=== PATIENT | female | born 1960 | race Caucasian/White ===

== ENCOUNTER 2024-09-08 04:05 | Inpatient (IN) | payer OTHER, SELFPAY ==
[2024-09-08] VITALS (13 sets, daily range): BP systolic 112–187; BP diastolic 71–130; PULSE 84–122; RESP 16–23; TEMP 36.4–37.6; O2SAT 86–97; BMI 39.0; BMI 39.7
--- NOTE | 2024-09-08 04:21 | CT_ITS ---
PROCEDURE: CTA CHEST W/WO CONTRAST REASON FOR EXAM: Chest pain. TECHNIQUE: CTA imaging of the chest with intravenous contrast. 3D reconstructions. CONTRAST: COMPARISON: None. FINDINGS: The thyroid is enlarged and heterogeneous and contains multiple nodules. The right lobe of the thyroid measures up to 6.1 AP by 3.3 TV cm. Further evaluation with ultrasound is recommended. The trachea and central bronchial tree is are patent. There is no pleural or pericardial effusion. The heart is normal in size. The pulmonary arteries appear normal in size and caliber. There is no filling defect to suggest pulmonary artery embolism. The thoracic aorta is without evidence of aneurysmal dilatation. Small hiatal hernia is present. There are gallstones present within the gallbladder. Evaluation of the lung parenchyma demonstrates diffuse patchy ground-glass infiltrates particularly within the right lung. There are some patchy ground-glass infiltrates on the left side. The streaky changes at the lung bases. There is thickening involving the major fissures bilaterally. Pulmonary interstitium is thickened. No acute osseous abnormalities. CT/CTA Chest W/WO Contrast IMPRESSION: Diffuse patchy ground-glass infiltrates within the right lung. Some patchy inf iltrates are noted on the left. There is pulmonary interstitial thickening bilaterally. These findings are most compati ble with infectious versus inflammatory process within the lungs. Follow-up onto complete resolution is recommended. There is no evidence to suggest pulmonary embolism Hiatal hernia. 6.1 cm right thyroid mass. Further evaluation is warranted. Cholelithiasis. Other findings as above. One or more dose reduction techniques were used (e.g., Automated exposure contr ol, adjustment of the mA and/or kV according to patient size, use of iterative reconstruction technique). Reading Location: [id number]
--- NOTE | 2024-09-08 04:21 | EKG12_ITS ---
Test Reason : BACK PAIN Blood Pressure : */* mmHG Vent. Rate : 112 BPM Atrial Rate : 112 BPM P-R Int : 144 ms QRS Dur : 100 ms QT Int : 332 ms P-R-T Axes : 53 -2 116 degrees QTcB Int : 453 ms Sinus tachycardia with Fusion complexes Left ventricular hypertrophy with repolarization abnormality ( R in aVL , Avtar product ) Inferior infarct , age undetermined Abnormal ECG Confirmed by Michel Leonard ([id number]), copy editor YOUSUF GOODWIN ([id number]) on 09/09/2024 6:57:50 AM Referred By: Confirmed By: Michel Leonard
[2024-09-08] MEDS: 0.9% Normal Saline (1000mL) 1,000 ML 999 ML IV (04:38)
[2024-09-08] MEDS: Morphine 4 MG/ML Syringe IV (04:39)
[2024-09-08] MEDS: Ondansetron 4 MG/2 ML Vial IV (04:39)
--- NOTE | 2024-09-08 04:47 | EX.ED.DYSGE1 ---
HPI History of Present Illness Chief Complaint: Back Informant: patient and spouse/S.O. Narrative Narrative: Patient is a 63-year-old female who reports no significant past medical history. She states that starting roughly 2 weeks ago she noticed pain in her left upper back. She states that there was no trauma or excessive activity. She denies any fevers or chills nausea vomiting or dysuria. She states she has not noticed any skin discoloration or rashes. She reports that the symptoms seem to be worse at night after eating. However tonight the pain was more intense and is lasting longer than she has had over the past 2 weeks and with that she presents for evaluation. [facility] Medical History (Updated 09/08/24 @ 06:[address] Eleni Rogers MD) Former tobacco use CKD (chronic kidney disease), stage II Morbid obesity Medical History no medical history no medical history Home Medications ?Medication ?Instructions ?Recorded ?Last Taken ?Type NK 09/08/24 Unknown History Allergy/AdvReac Type Severity Reaction Status Date / Time No Known Allergies Allergy Verified 09/08/24 04:09 Social History Smoking Status: Former smoker ROS ROS ED Constitutional Constitutional ED: Denies chills or fever(s) Eyes Eyes: Denies blurry vision or change in vision ENT ENT ED: Denies sore throat Cardiovascular Cardiovascular: Reports racing heartbeat; Denies chest pain or palpitations Respiratory/Chest Respiratory/Chest: Denies cough or dyspnea Gastrointestinal Gastrointestinal: Denies abdominal pain, diarrhea, nausea or vomiting Genitourinary Genitourinary ED: Denies dysuria or hematuria Musculoskeletal Musculoskeletal: Reports back pain; Denies neck pain Integumentary Denies Abrasions or rash Neurologic Neurologic: Denies headache(s) Hematologic/Lymphatic Hematologic/Lymphatic: Denies easy bleeding or easy bruising EXAM Physical Exam Const Vital Signs: 09/08/24 04:06 09/08/24 04:14 09/08/24 04:59 Temperature 97.5 F L Temperature Source Oral Pulse Rate 122 H 119 H Respiratory Rate 18 23 H Blood Pressure 187/130 H Blood Pressure Mean 149 Pulse Ox 93 95 86 Oxygen Delivery Method Room Air Room Air Room Air Oxygen Flow Rate (L/min) 09/08/24 05:04 Temperature Temperature Source Pulse Rate 104 H Respiratory Rate 18 Blood Pressure 156/110 H Blood Pressure Mean 125 Pulse Ox 93 Oxygen Delivery Method Nasal Cannula Oxygen Flow Rate (L/min) 2 Positive well nourished, well developed and obese General Appearance ED: well developed; Negative for pallor Nutritional Appearance: obese HEENT HEENT Narrative: Normocephalic atraumatic Eyes PERRL and EOMs intact bilaterally General Eye ED: Negative for scleral icterus Neck supple and no JVD Chest Wall palpation of chest normal Resp normal respiratory effort and clear to auscultation bilaterally Cardio regular rhythm Rate: tachycardic and other Other Details: Tachycardic rate with regular rhythm No murmurs rubs or gallops Radial and carotid pulses are equal and symmetric GI normal to inspection, nondistended, normoactive bowel sounds, non-tender, non-distended and no masses GI Narrative: No voluntary guarding or rigidity or pulsatile mass Auscultation: normoactive bowel sounds Palpation: soft Back/Spine no CVA tenderness Extremity normal to inspection Extremity Narrative: No asymmetric edema no pitting edema negative Homans' sign bilaterally Neuro oriented x3, CN's II-XII intact bilaterally and no sensory deficits noted Sensorium / Orientation: alert Motor Exam: strength 5/5 throughout Psych mental status grossly normal Skin no rashes or lesions noted and no wounds Skin Narrative: No overlying soft tissue changes to suggest trauma or infection General Skin Exam: Negative for jaundice or pallor MDM MDM MDM Narrative Medical decision making narrative: Patient arrived to the ER hypertensive and tachycardic. She reported that she follows with a family doctor but has no past medical history and takes no daily medication. With her left upper back pain that is not reproducible in nature and tachycardia there is concern that this could be pulmonary embolus versus dissection versus acute coronary syndrome. As she also reported symptoms were worse after eating there is concern for atypical pancreatitis versus biliary colic. Patient may also have atypical presentation for kidney stone or pyelonephritis. Urine sample showed no obvious signs of infection or blood going against pyelonephritis or stone. CT of the chest revealed no PE or dissection. It did show changes concerning for potential pneumonia but the patient has not had a cough or fever and denies any history of lung disorders such as smoking asthma or COPD. Her troponin came back elevated at 312 concerning for non-STEMI versus hypertensive emergency. The case was discussed with the pipe fitter maintenance on-call Dr. Leonard. He states that he with the patient's lung changes on CT scan and no PE or dissection that this is most likely related to her uncontrolled blood pressure. He recommends that she be placed on Nitropaste and a beta-david and then her troponins to be trended to see if they are downtrending with improvement of the hypertension. He states that she will also need further cardiac workup with stress test/echo but he states there is no need for a nitro drip at this time or heparin drip. He does recommend DVT prophylaxis with Lovenox. Secondary to the persistent hypertension elevated troponin and need for continued treatment and observation the hospitalist was contacted. They agree to accept the patient at this time for continued care History & Record Review Discussion w/independent historian: Patient and Significant other Lab Data Attestation: I reviewed the patient's lab results. Labs: Laboratory Results - last 24 hr 09/08/24 09/08/24 04:39 05:35 WBC 13.0 H RBC 5.23 Hgb 14.7 Hct 44.1 MCV 84.3 MCH 28.1 MCHC 33.3 RDW Std Deviation 44.3 H RDW Coeff of [place] 14.4 Plt Count 354 MPV 9.6 Immature Gran % (Auto) 0.600 Neut % (Auto) 81.2 H Lymph % (Auto) 11.6 L [place] % (Auto) 5.9 Eos % (Auto) 0.2 Baso % (Auto) 0.5 Absolute Neuts (auto) 10.5 H Absolute Lymphs (auto) 1.50 Nucleated RBC % 0 PT 13.3 INR 1.0 APTT 32.0 Sodium 137 Potassium 4.0 Chloride 104 Carbon Dioxide 19.5 L Anion Gap 14 BUN 16 Creatinine 0.79 Estim Creat Clear Calc 76.12 Est GFR (MDRD) Non-Af 83 BUN/Creatinine Ratio 20.5 H Glucose 162 H Calcium 9.1 Total Bilirubin 0.37 Direct Bilirubin 0.16 AST 58 H ALT 16 Alkaline Phosphatase 104 Troponin T High Sens 312 H* Total Protein 7.6 Albumin 4.1 Globulin 3.5 Lipase 34 Urine Color Yellow Urine Clarity Clear Urine pH 6.0 Ur Specific [place] 1.010 Urine Protein 15 H Urine Glucose (UA) Normal Urine Ketones Negative Urine Occult Blood Negative Urine Nitrite Negative Urine Bilirubin Negative Urine Urobilinogen Normal Ur Leukocyte Esterase Negative Urine RBC 0 SEEN Urine WBC 0-5 SEEN Ur Squamous Epith Cells 5-10 SEEN Urine Bacteria 1+ Urine Mucus 0 SEEN Radiography Diagnostic Testing: Clinical Impression(s) from Imaging Studies Chest CTA 09/08/24 04:21 IMPRESSION: Diffuse patchy ground-glass infiltrates within the right lung. Some patchy infiltrates are noted on the left. There is pulmonary interstitial thickening bilaterally. These findings are most compatible with infectious versus inflammatory process within the lungs. Follow-up onto complete resolution is recommended. There is no evidence to suggest pulmonary embolism Hiatal hernia. 6.1 cm right thyroid mass. Further evaluation is warranted. Cholelithiasis. Other findings as above. One or more dose reduction techniques were used (e.g., Automated exposure control, adjustment of the mA and/or kV according to patient size, use of iterative reconstruction technique). Reading Location: [id number] Management Discussion w/another healthcare provider: Hospitalist and Manager [employer] Discharge Plan Dx/Rx/DC Orders Clinical Impression: Hypertensive emergency, Elevated troponin, Cholelithiasis Disposition Disposition: Acute Care Hospital [facility]
[2024-09-08 04:54] LABS: Absolute Neutrophil Count 10.5 X10^3/uL (2.0-7.7); Basophil# 0.07 X10^3/uL; Basophil% 0.5 % (0-1); Eosinophil# 0.02 X10^3/uL; Eosinophils% 0.2 % (0-5); Hematocrit 44.1 % (37-47); Hemoglobin 14.7 g/dL (12.0-15.0); Lymphocyte % 11.6 % (19-41); Mean Corp Hgb Conc 33.3 g/dL (32-36); Mean Corpuscular Hgb 28.1 pg (27.0-32.0); Mean Corpuscular Volume 84.3 fL (81-99); Mean Platelet Vol. 9.6 fl (6.2-12.0); Monocyte# 0.76 X10^3/uL; Monocyte% 5.9 % (0-10); NRBC Flagged by Analyzer 0 % (0-5); Neutrophil # 10.54 X10^3/uL (2.7-7.7); Neutrophil % 81.2 % (47-70); Platelet Count 354 K/mm3 (150-450); RBC Distribution Width CV 14.4 % (11.6-14.6); RBC Distribution Width SD 44.3 fl (35.1-43.9); Red Blood Count 5.23 M/mm3 (4.2-5.4)
[2024-09-08 05:00] LABS: Prothrombin Time (Protime)PT. 13.3 SECONDS (11.7-14.9)
[2024-09-08 05:08] LABS: AST(SGOT) 58 U/L (<=31); Alanine Aminotransfer ALT/SGPT 16 U/L (<=34); Albumin, Serum 4.1 g/dL (3.4-4.8); Alkaline Phosphatase 104 U/L (35-104); Anion Gap 14 (5-15); BUN 16 mg/dL (4-19); BUN/Creat Ratio 20.5 RATIO (10-20); Bilirubin, Direct 0.16 mg/dL (0.00-0.30); Calcium,Total 9.1 mg/dL (7.6-11.0); Carbon Dioxide 19.5 mmol/L (21.0-32.0); Chloride 104 mmol/L (98-108); Creatinine, Serum 0.79 mg/dL (0.70-1.20); EST Glomerular Filtration Rate 83 (>60); Estimated Creatinine Clearance 76.12 ml/min (50-250); Globulin 3.5 g/dL (2.2-4.2); Glucose 162 mg/dL (70-99); Lipase 34 U/L (13-75); Protein, Total 7.6 g/dL (5.9-8.4); Sodium Level 137 mmol/L (133-145); Total Bilirubin 0.37 mg/dL (0.00-1.30)
[2024-09-08 05:43] LABS: Mucous, Urine 0 SEEN /hpf (<or=2+)
[2024-09-08 05:47] LABS: Color, Urine Yellow (Yellow); Glucose, Dipstick Normal (Normal); Ketone-Dipstick Negative (Negative); Leukocyte Esterase-Dipstick Negative /ul (Negative); Nitrite-Dipstick Negative (Negative); Occult Blood-Urine Negative /ul (Negative); Protein-Dipstick 15 mg/dl (Negative); Urine Bilirubin Dipstick Negative (Negative); Urine Clarity Clear (Clear); Urine Urobilinogen Normal (Normal)
[2024-09-08 05:50] LABS: Troponin T High Sensitivity 312 ng/L (<=14)
[2024-09-08 06:19] LABS: Bacteria 1+ /hpf (None Seen); Red Blood Cells-Urine 0 SEEN /hpf (0-5); Squamous Epithelial Cells - UA 5-10 SEEN /hpf (5-10); White Blood Cells 0-5 SEEN /hpf (0-5)
--- NOTE | 2024-09-08 06:25 | HP.PCM.HOS_ITS ---
HPI - General General Date of Admission: 09/08/24 Date of Service: 09/08/24 Chief Complaint: Back pain. HPI Narrative The patient is a 63 y/o F w/ PMHx: Morbid Obesity, Possible CKD stage II who presents to the [facility] ED on 09/08/24 with history of starting 2 weeks previous left upper back discomfort with no recent fevers or chills with symptoms worse at night after eating and today pain noted to be more intense and longer lasting than over the last 2 weeks prompting eventual ED evaluation be cautious. She denies any recent cough, congestion, rhinorrhea or URI type symptoms. Upon current evaluation she denies any back discomfort. Workup in the ED included T97.5, heart rate 122, BP 118, 93% on room air with most recent repeat vital signs heart rate 104, BP 156/110, respiratory rate 18, 86% on room air after morphine administration with improvement to 92% on 2 L nasal cannula, CBC with WBC 13, hemoglobin 14.7, platelet 354 with left shift, unremarkable coags, CMP with At 19.5, glucose 162, BUN/creatinine 16/0.79, GFR 83, AST 58 otherwise [place] profile not marked appearing, troponin 312, urinalysis pending upon requested evaluation of patient, CTA chest with diffuse patchy groundglass infiltrates within the right lung and some patchy infiltrates noted on the left, pulmonary interstitial thickening bilaterally compatible with infectious versus inflammatory process, no evidence of any pulmonary embolism, hiatal hernia, 6.1 send right thyroid mass, evidence of cholelithiasis, EKG wtih ST flattening lead I and aVL, T wave inversion V4 and V5. In the ED patient administered FS ASA, Lovenox 100 mg subcu x 1, metoprolol 50 mg x 1, morphine 4 mg IV x 1, nitroglycerin transdermal x 1, Zofran 4 mg IV x 1 and 1 L normal saline. ED discussed case with Dr. Leonard, Lodging Manager. [facility] Medical History Former tobacco use CKD (chronic kidney disease), stage II Morbid obesity Medical History no medical history Home Medications ?Medication ?Instructions ?Recorded ?Last Taken ?Type NK 09/08/24 Unknown History Allergy/AdvReac Type Severity Reaction Status Date / Time No Known Allergies Allergy Verified 09/08/24 04:09 Family History (Updated 09/08/24 @ 06:[address] Eleni Rogers MD) Mother IBD (inflammatory bowel disease) Macular degeneration Father Hypertension Heart disease CAD (coronary artery disease) Myocardial infarction Surgical History (Updated 09/08/24 @ 06:[address] Eleni Rogers MD) History of bilateral tubal ligation [place] teeth extracted History of tonsillectomy and adenoidectomy Social History (Updated 09/08/24 @ 07:[address] Eleni Rogers MD) household members: spouse Smoking Status: Former smoker how long ago did patient quit smoking: Quit ~ 30 yrs prior, smoked 1/2 ppd until quit. alcohol intake: current alcohol intake frequency: holidays/special occasions only substance use type: does not use ROS ROS Narrative Admission Review of Systems: CONSTITUTIONAL: No weight loss, fever, chills, + weakness or fatigue. HEENT: Eyes: No visual loss, blurred vision, double vision or yellow sclerae. Ears, Nose, Throat: No hearing loss, sneezing, congestion, runny nose or sore throat. SKIN: No rash or itching, lesions, wounds. CARDIOVASCULAR: No chest pain, chest pressure or chest discomfort, palpitations, edema, orthopnea, syncopal events. RESPIRATORY: No shortness of breath, cough or sputum, wheezing, hemoptysis. GASTROINTESTINAL: No anorexia, nausea, vomiting or diarrhea, abdominal pain, melena, BRBPR. GENITOURINARY: No dysuria, frequency, urgency or retention. NEUROLOGICAL: No headache, dizziness, syncope, paralysis, ataxia, numbness or tingling in the extremities, focal weakness, change in bowel or bladder control, seizure. MUSCULOSKELETAL: + muscle, back pain, joint pain or stiffness. HEMATOLOGIC: No anemia, bleeding or bruising. LYMPHATICS: No enlarged nodes. No history of splenectomy. PSYCHIATRIC: No history of depression or anxiety. ENDOCRINOLOGIC: No reports of sweating, cold or heat intolerance. No polyuria or polydipsia. ALLERGIES: No history of asthma, hives, eczema or rhinitis. Vital Signs Vital Signs Vital Signs: 09/08/24 04:06 09/08/24 04:14 09/08/24 04:59 Temperature 97.5 F L Temperature Source Oral Pulse Rate 122 H 119 H Respiratory Rate 18 23 H Blood Pressure 187/130 H Blood Pressure Mean 149 Pulse Ox 93 95 86 Oxygen Delivery Method Room Air Room Air Room Air Oxygen Flow Rate (L/min) 09/08/24 05:04 Temperature Temperature Source Pulse Rate 104 H Respiratory Rate 18 Blood Pressure 156/110 H Blood Pressure Mean 125 Pulse Ox 93 Oxygen Delivery Method Nasal Cannula Oxygen Flow Rate (L/min) 2 Weight Weight: 213 lb 6.519 oz Body Mass Index (BMI) 39.0 Physical Exam Narrative Physical Examination: General: Awake, alert, oriented x 3 and cooperative, seated upright in the ED bed, denies any chest discomfort or current back discomfort. Skin: Normal color, normal turgor, no icterus, no cyanosis. HEENT: AT/NC, EOMI, PERRLA, MMM, no carotid bruits or JVD noted; however thickened neck makes evaluation difficult and unable to discern markedly thyroid enlargement. Lungs: CTA bilaterally, moderate effort, mild decrease BL bases, no rales, ronchi or wheezing. Heart: Mildly tachycardic with regular rhythm; no gallop, rub audible. Abdomen: Soft, morbidly obese, NTTP, distant BS, difficult to discern distention or HSM given habitus. Extremities: No cyanosis, no clubbing, mild ankle not markedly pitting edema. Neurological: Patient awake, alert, oriented as noted, cognitive function intact; pupils equally reactive to light and accommodation, cranial nerves gross normal, moving all 4 extremities, no focal deficits, strength mildly to moderately globally. Secondary to acute complaints Psychiatric: Affect appears fatigued otherwise normal, no acute evidence of depressive or anxiety feelings. Results Lab / Micro Data 09/08/24 04:39 09/08/24 04:39 Labs: Laboratory Results - last 24 hr 09/08/24 04:39: WBC 13.0 H, RBC 5.23, Hgb 14.7, Hct 44.1, MCV 84.3, MCH 28.1, MCHC 33.3, RDW Std Deviation 44.3 H, RDW Coeff of [place] 14.4, Plt Count 354, MPV 9.6, Immature Gran % (Auto) 0.600, Neut % (Auto) 81.2 H, Lymph % (Auto) 11.6 L, [place] % (Auto) 5.9, Eos % (Auto) 0.2, Baso % (Auto) 0.5, Absolute Neuts (auto) 10.5 H, Absolute Lymphs (auto) 1.50, Nucleated RBC % 0, PT 13.3, INR 1.0, APTT 32.0, Sodium 137, Potassium 4.0, Chloride 104, Carbon Dioxide 19.5 L, Anion Gap 14, BUN 16, Creatinine 0.79, Estim Creat Clear Calc 76.12, Est GFR (MDRD) Non-Af 83, BUN/Creatinine Ratio 20.5 H, Glucose 162 H, Calcium 9.1, Total Bilirubin 0.37, Direct Bilirubin 0.16, AST 58 H, ALT 16, Alkaline Phosphatase 104, T roponin T High Sens 312 H*, Total Protein 7.6, Albumin 4.1, Globulin 3.5, Lipase 34 09/08/24 05:35: Urine Color Yellow, Urine Clarity Clear, Urine pH 6.0, Ur Specific [place] 1.010, Urine Protein 15 H, Urine Glucose (UA) Normal, Urine Ketones Negative, Urine Occult Blood Negative, Urine Nitrite Negative, Urine Bilirubin Negative, Urine Urobilinogen Normal, Ur Leukocyte Esterase Negative, Urine RBC 0 SEEN, Urine WBC 0-5 SEEN, Ur Squamous Epith Cells 5-10 SEEN, Urine Bacteria 1+, Urine Mucus 0 SEEN Imaging Radiology Impression Chest CTA 09/08/24 04:21 IMPRESSION: Diffuse patchy ground-glass infiltrates within the right lung. Some patchy infiltrates are noted on the left. There is pulmonary interstitial thickening bilaterally. These findings are most compatible with infectious versus inflammatory process within the lungs. Follow-up onto complete resolution is recommended. There is no evidence to suggest pulmonary embolism Hiatal hernia. 6.1 cm right thyroid mass. Further evaluation is warranted. Cholelithiasis. Other findings as above. One or more dose reduction techniques were used (e.g., Automated exposure control, adjustment of the mA and/or kV according to patient size, use of iterative reconstruction technique). Reading Location: [id number] Assessment & Plan Assessment/Plan (1) Hypertensive emergency: (2) Elevated troponin: PLAN: Plan The patient is a 63 y/o F w/ PMHx: Morbid Obesity, Possible CKD stage II who presents to the [facility] ED on 09/08/24 with history of starting 2 weeks previous left upper back discomfort with no recent fevers or chills with symptoms worse at night after eating and today pain noted to be more intense and longer lasting than over the last 2 weeks prompting eventual ED evaluation be cautious. #1. Atypical chest pain with elevated cardiac enzymes, NSTEMI potential, unclear type secondary to possible Hypertension Emergency: EKG wtih ST flattening lead I and aVL, T wave inversion V4 and V5, initial troponin 312, maintain on a monitored bed, continue serial cardiac enzymes and EKGs. Obtain magnesium level upon admission. Therapeutic Lovenox administered in the ED as noted. Will maintain on aspirin, add high-dose statin, metoprolol and TD nitro paste per cardio, FLP in AM. Stress ECHO requested per cardiology recommendation. Cardiology consulted. ASA, NG, morphine. #2. Acute Hypoxia suspected secondary to Morphine; however, CTPA with incidentally noted questionable Bilateral LL Pneumonia, unclear organism potential, but lower suspicion given no recent symptoms: Will maintain on oxygen with wean as tolerated to room air, to be cautious will request procalcitonin, rapid COVID, full respiratory viral panel, if concerning may add abx therapy and further assess PNA potential. #3. Cholelithiasis: Noted on CT, although pain noted after eating not located in the RUQ, encourage continued follow-up outpatient. #4. Possible Chronic Kidney Disease Stage II per GFR trending: Admission BUN/Cr 16/0.79, GFR 83, baseline renal function unknown, repeat BMP in AM. #5. Hyperglycemia: Admission glucose 162, no diabetic history, he 1 A1c requested to be cautious. #6. Elevated BP without hypertensive diagnosis: BP elevated above goal, per current list already chronic regimen, IV hydralazine in the interim. #7. Incidentally noted thyroid mass: CT with an incidentally noted 6.1 cm right thyroid mass, TSH and free T4 requested. #8. Morbid Obesity: Weight loss and lifestyle changes encouraged. #9. Former tobacco use: Encourage continued tobacco cessation. #10. DVT prophylaxis: Therapeutic Lovenox as noted. #11. CODE status: Patient healthcare prematurely living will not in place but she notes her who is present would be her medical decision-maker if necessary. Discussed CODE status at length including difference between FULL code, DNR-CCA and DNR-CC status. Following discussions about the differences in these status, requested Full Code status. Advanced Care Planning Face to Face Time: 16 minutes. Charges/Coding Visit Charges Inpatient E&M: 04670 Init Hosp L3 Procedures Hospitalists Procedures: 70983 Advncd Care Plan 30 Min
[2024-09-08] MEDS: Nitroglycerin Oint 1 INCH PACKET TD ×2 (06:30→17:06)
[2024-09-08] MEDS: Enoxaparin 100 MG/ML Syringe SC ×2 (06:30→17:06)
[2024-09-08] MEDS: Metoprolol Tartrate 50 MG Tablet PO (06:31)
[2024-09-08] MEDS: Aspirin 325 MG Tablet PO (07:20)
[2024-09-08] MEDS: 0.9% Normal Saline (1000mL) 1,000 ML 100 ML IV (07:40)
[2024-09-08] MEDS: hydrALAZINE 20 MG/ML Vial 10 MG IV (07:52)
[2024-09-08 08:10] LABS: Magnesium 2.1 mg/dL (1.5-2.2)
--- NOTE | 2024-09-08 09:37 | CON.PCM.CA_ITS ---
Assessment & Plan Assessment/Plan (1) Hypertensive emergency: PLAN: Patient's blood pressures remained elevated in the emergency department 160/120. Her symptoms have improved and essentially resolved. Her initial troponin was 312 the delta troponin is pending. EKG did show signs of LVH and an old inferior wall infarct pattern. Have started metoprolol to tartrate 50 mg twice daily we will add losartan 50 mg daily as well. We may need to add additional medical therapy to better control her blood pressure. (2) Elevated troponin: PLAN: Initial troponin was 312. The second troponin is still pending. If this is elevated recommend the patient undergo a left heart catheterization today. The procedure risk/benefit and alternatives were explained to the patient and her they voiced understanding and agreed to proceed as outlined. The second troponin is going down we will evaluate her with an echocardiogram this morning in the ED. If there is segmental wall motion abnormalities the patient should have left heart catheterization if this seems to be all related to severe LVH would consider pharmacologic stress testing as an alternative to a catheterization. (3) Thyroid nodule: PLAN: Patient has multiple thyroid nodules noted on her CT scan this morning. This needs to be addressed with the primary setting. (4) Hyperlipidemia: QUALIFIERS: Hyperlipidemia type: pure hypercholesterolemia Q ualified Code(s): E78.00 - Pure hypercholesterolemia, unspecified PLAN: I found lipids that were done July 2012 total cholesterol was 219 triglycerides 154 LDL 129 and HDL 59. Given the patient's current situation she should be treated with aggressive statin therapy she has been started on atorvastatin 80 mg daily. PLAN: Plan 1. Awaiting the delta troponin. Once available recommendations will be forthcoming. 2. The delta troponin is elevated a left heart catheterization would be indicated today. 3. Will obtain 2D echocardiogram in the emergency department to evaluate LV function. HPI Consult Data Date of Consult: 09/08/24 HPI Narrative Reason for Consultation: Positive Troponins HPI Narrative: SHUKRI MCKNIGHT, is a 63 F who presents with a 2-week history of intrascapular discomfort that radiates down the back of her left arm. This occurs when she is trying to lay in the recumbent position she could not get comfortable it did not really change with change of position once it started. She is not very active but did not have this when she was up and moving around the house. She does not go to the physician. She does have a history of family history of father and is age 50 having a myocardial infarction and stents. She is hypertensive with blood pressures 165/120 in the emergency department. She does not know her lipid status. She smoked but quit 30 years ago. She is not diabetic to her knowledge. A CTA was performed which showed no evidence of aortic dissection or pulmonary embolus. Her pain was improved with IV morphine. She is now essentially pain- free resting on the gurney in the emergency department. Patient really denies any trauma or any history of C-spine issues. She denies any recent infections although her CTA does show groundglass appearance of her lung parenchyma consistent with inflammatory versus an old infectious process and her white blood cell count is minimally elevated at 13,000. She is not febrile. The patient has no previous history of GI issues. Although her did volunteer that she did burp a lot prior to starting having the symptoms. Patient denies any lower extremity edema she denies any syncope or near syncope. The patient's CTA did notice multiple thyroid nodules. She does not know of a TSH level and I do not find 1 in the old records. The patient's initial troponin T was 312 the second 1 was lost in the lab the third 1 is pending at this time. EKG showed sinus tachycardia at [address]-T wave changes consistent with LVH. There is also an old inferior wall infarct pattern. [facility] Medical History Former tobacco use CKD (chronic kidney disease), stage II Morbid obesity Medical History no medical history Home Medications ?Medication ?Instructions ?Recorded ?Last Taken ?Type NK 09/08/24 Unknown History Allergy/AdvReac Type Severity Reaction Status Date / Time No Known Allergies Allergy Verified 09/08/24 04:09 Family History Mother IBD (inflammatory bowel disease) Macular degeneration Father Hypertension Heart disease CAD (coronary artery disease) Myocardial infarction Surgical History History of bilateral tubal ligation [place] teeth extracted History of tonsillectomy and adenoidectomy Social History household members: spouse Smoking Status: Former smoker how long ago did patient quit smoking: Quit ~ 30 yrs prior, smoked 1/2 ppd until quit. alcohol intake: current alcohol intake frequency: holidays/special occasions only substance use type: does not use ROS Constitutional Constitutional: Reports as per HPI Eyes Eyes: Reports systems reviewed and no addt'l complaints, except as documented ENT HEENT: Reports systems reviewed and no addt'l complaints, except as documented Cardiovascular Cardiovascular: Reports as per HPI Respiratory/Chest Respiratory/Chest: Reports as per HPI Gastrointestinal Gastrointestinal: Reports systems reviewed and no addt'l complaints, except as documented Genitourinary Genitourinary: Reports systems reviewed and no addt'l complaints, except as documented Musculoskeletal Musculoskeletal: Reports as per HPI Integumentary Integumentary: Reports systems reviewed and no addt'l complaints, except as documented Neurologic Neurologic: Reports as per HPI Psychiatric Psychiatric: Reports systems reviewed and no addt'l complaints, except as documented Endocrine Endocrinology: Reports as per HPI Hematologic/Lymphatic Hematologic/Lymphatic: Reports systems reviewed and no addt'l complaints, except as documented Allergic/Immunologic Allergic/Immunologic: Reports systems reviewed and no addt'l complaints, except as documented Physical Exam Narrative Patient is resting comfortably in the ED on the gurney. She is emotional when discussing her situation. Const alert and oriented x3 HEENT normocephalic Eyes PERRL Neck no JVD and no carotid bruits Chest inspection of chest normal Resp normal respiratory effort and clear to auscultation bilaterally Cardio Rate: regular rate Rhythm: regular rhythm Heart Sounds: S1 normal and S2 normal; Negative for click, gallop or murmur Peripheral Pulses: radial pulses present bilateral 2+ and dorsalis pedis pulses present bilateral 2+ GI soft to palpation and no bruits Extremity no pedal edema Neuro Neuro Narrative: Alert and oriented x 3 Psych Psych Narrative: Patient appropriately emotional given her current situation. Risk Stratification Risk Stratification Applicable: Yes Age >/= 65: Yes >/= 3 CAD Risk Factors (HTN, HLD, DM, family hx of CAD, or current smoker): Yes Aspirin Use in the Past 7 Days: No Severe Angina (>/= episodes in 24 hours): Yes EKG ST Changes >/= 0.5mm: No Positive Cardiac Marker: Yes DELFINO Risk Stratification Score: 4 DELFINO % Risk: 20% Risk Charges/Coding Visit Charges Inpatient E&M: 90008 Init Hosp L3 Objective Data Vital Signs: Vital Signs Temp Pulse Resp BP Pulse Ox O2 Del Method O2 Flow Rate 97.7 F L 84 16 166/121 H 94 Nasal Cannula 2 09/08/24 07:32 09/08/24 07:52 09/08/24 07:32 09/08/24 07:52 09/08/24 07:32 09/08/24 07:32 09/08/24 07:32 Oxygen Flow Rate (L/min) 2 Oxygen Delivery Method Nasal Cannula Weight: 217 lb 6.012 oz Body Mass Index (BMI) 39.7 Intake & Output: Intake and Output for Last 24 Hours 09/06/24 09/07/24 09/08/24 23:59 23:59 23:59 Intake Total 1000 / 1000 Balance 1000 / 1000 Lab / Micro Data Attestation: I reviewed the patient's lab results. 09/08/24 04:39 09/08/24 04:39 Labs: Laboratory Results - last 24 hr 09/08/24 04:39: WBC 13.0 H, RBC 5.23, Hgb 14.7, Hct 44.1, MCV 84.3, MCH 28.1, MCHC 33.3, RDW Std Deviation 44.3 H, RDW Coeff of Yamilka 14.4, Plt Count 354, MPV 9.6, Immature Gran % (Auto) 0.600, Neut % (Auto) 81.2 H, Lymph % (Auto) 11.6 L, [place] % (Auto) 5.9, Eos % (Auto) 0.2, Baso % (Auto) 0.5, Absolute Neuts (auto) 10.5 H, Absolute Lymphs (auto) 1.50, Nucleated RBC % 0, PT 13.3, INR 1.0, APTT 32.0, Sodium 137, Potassium 4.0, Chloride 104, Carbon Dioxide 19.5 L, Anion Gap 14, BUN 16, Creatinine 0.79, Estim Creat Clear Calc 76.12, Est GFR (MDRD) Non-Af 83, BUN/Creatinine Ratio 20.5 H, Glucose 162 H, Calcium 9.1, Magnesium 2.1, Total Bilirubin 0.37, Direct Bilirubin 0.16, AST 58 H, ALT 16, Alkaline Phosphatase 104, Troponin T High Sens 312 H*, Total Protein 7.6, Albumin 4.1, Globulin 3.5, Lipase 34 09/08/24 05:35: Urine Color Yellow, Urine Clarity Clear, Urine pH 6.0, Ur Specific [place] 1.010, Urine Protein 15 H, Urine Glucose (UA) Normal, Urine Ketones Negative, Urine Occult Blood Negative, Urine Nitrite Negative, Urine Bilirubin Negative, Urine Urobilinogen Normal, Ur Leukocyte Esterase Negative, Urine RBC 0 SEEN, Urine WBC 0-5 SEEN, Ur Squamous Epith Cells 5-10 SEEN, Urine Bacteria 1+, Urine Mucus 0 SEEN Micro: Microbiology 09/08/24 07:28 Mucosa - Nose Coronavirus COVID-19 PCR - Final Rhythm Strip Rhythm Strip: Sinus Rhythm Rate: 84 Cardiology Labs/Tests 09/08/24 04:39: WBC 13.0 H, RBC 5.23, Hgb 14.7, Hct 44.1, MCV 84.3, MCH 28.1, MCHC 33.3, Plt Count 354, MPV 9.6, Immature Gran % (Auto) 0.600, Neut % (Auto) 81.2 H, Lymph % (Auto) 11.[address] L, [place] % (Auto) 5.9, Eos % (Auto) 0.2, Baso % (Auto) 0.5, Absolute Neuts (auto) 10.5 H, Nucleated RBC % 0, PT 13.3, INR 1.0, APTT 32.0, Sodium 137, Potassium 4.0, Chloride 104, Carbon Dioxide 19.5 L, Anion Gap 14, BUN 16, Creatinine 0.79, Est GFR (MDRD) Non-Af 83, BUN/Creatinine Ratio 20.5 H, Glucose 162 H, Calcium 9.1, Magnesium 2.1, Total Bilirubin 0.37, Direct Bilirubin 0.16 09/08/24 05:35: Urine Color Yellow, Urine Clarity Clear, Urine pH 6.0, Ur Specific [place] 1.010, Urine Protein 15 H, Urine Glucose (UA) Normal, Urine Ketones Negative, Urine Occult Blood Negative, Urine Nitrite Negative, Urine Bilirubin Negative, Urine Urobilinogen Normal, Ur Leukocyte Esterase Negative, Urine RBC 0 SEEN, Urine WBC 0-5 SEEN Rhythm: EKG: ECHO: Stress Test: Cardiac Cath: PCI: CT Surgery: Holter monitor: EPS: PPM: CXR: Chest CT Scan: Radiography Diagnostic Testing: Radiology Impression Chest CTA 09/08/24 04:21 IMPRESSION: Diffuse patchy ground-glass infiltrates within the right lung. Some patchy infiltrates are noted on the left. There is pulmonary interstitial thickening bilaterally. These findings are most compatible with infectious versus inflammatory process within the lungs. Follow-up onto complete resolution is recommended. There is no evidence to suggest pulmonary embolism Hiatal hernia. 6.1 cm right thyroid mass. Further evaluation is warranted. Cholelithiasis. Other findings as above. One or more dose reduction techniques were used (e.g., Automated exposure control, adjustment of the mA and/or kV according to patient size, use of iterative reconstruction technique). Reading Location: [id number]
--- NOTE | 2024-09-08 09:37 | ECHOCS_ITS ---
Reason For Study Reason For Study: Chest Pain Procedure This was a 2D Doppler, Color Flow transthoracic echocardiogram. The study was technically difficult. Contrast injection was performed. Exam performed portable in ED. Left Ventricle Normal LV size. Mild concentric left ventricular hypertrophy. Generalized hypokinesis. Severe apical and anterior hypokinesis to akinesis. Estimated LVEF 30%. Diastolic dysfunction with indeterminate left atrial pressures. Right Ventricle Normal RV size. Mild global right ventricular systolic dysfunction. Atria The left and right atria are normal. Mitral Valve Moderate mitral annular calcification. Mild-Moderate (1-2+) mitral valve insufficiency. Tricuspid Valve Trivial tricuspid valve insufficiency. Unable to estimate RV systolic pressure due to insufficient tricuspid regurgitant envelope. Aortic Valve Trisinus/trileaflet aortic valve. Trivial aortic valve insufficiency. Pulmonic Valve The pulmonic valve is not well visualized. Great Vessels Normal sized aortic root. Pericardium/Pleural Trivial pericardial effusion. Medication Diluted definity 2ml given slow IV push to enhance endocardial definition. MMode/2D Measurements & Calculations LVIDd: 4.9 cm IVSd: 1.3 cm Ao root diam: 3.0 cm LVIDs: 4.2 cm LVPWd: 1.1 cm RVDd: 3.4 cm FS: 13.8 % LAV(MOD-bp): 48.7 ml LVAd ap4: 38.4 cm2 SV(MOD-sp4): 39.2 ml LAV(MOD-bp) Indexed: 25.0 ml/m2 LVLd ap4: 8.9 cm SI(MOD-sp4): 20.1 ml/m2 LAV(MOD-sp2): 51.1 ml EDV(MOD-sp4): 136.2 ml LAV(MOD-sp4): 45.5 ml EDV(sp4-el): 140.3 ml LVAs ap4: 31.3 cm2 LVLs ap4: 8.2 cm ESV(MOD-sp4): 96.9 ml ESV(sp4-el): 101.7 ml EF(MOD-sp4): 28.8 % EF(sp4-el): 27.5 % SV(sp4-el): 38.6 ml LA A4 area: 16.9 cm2 LA dimension(2D): 4.4 cm RA A4 area: 12.1 cm2 TAPSE: 1.2 cm Time Measurements MV dec time: 0.13 sec Doppler Measurements & Calculations MV E max jean carlos: 103.3 cm/sec Lat Peak E' Jean [place]: 7.2 cm/sec Med Peak E' [place]: 5.5 cm/sec MV A max jean carlos: 115.5 cm/sec E/E' lat: 14.3 E/E' med: 18.8 MV E/A: 0.89 MV V2 max: 138.8 cm/sec MV P1/2t max jean carlos: 99.0 cm/sec Ao V2 max: 97.8 cm/sec MV max P.7 mmHg MV P1/2t: 41.6 msec Ao max P.8 mmHg MV V2 mean: 72.2 cm/sec MV dec slope: 697.1 cm/sec2 Ao V2 mean: 71.6 cm/sec MV mean P.5 mmHg MVA(P1/2t): 5.3 cm2 Ao mean P.3 mmHg MV V2 VTI: 26.8 cm Ao V2 VTI: 20.5 cm AV (velocity ratio): 0.72 LV V1 max: 77.0 cm/sec LV V1 max P.4 mmHg LV V1 mean P.4 mmHg LV V1 mean: 57.1 cm/sec LV V1 VTI: 14.8 cm ECHO/Echo Complete W/ Contrast Interpretation Summary Generalized hypokinesis. Severe apical and anterior hypokinesis to akinesis. Es timated LVEF 25-30%. Diastolic dysfunction with indeterminate left atrial pressures. Mild global right ventricular systolic dysfunction. Moderate mitral annular calcification. Mild-Moderate (1-2+) mitral valve insufficiency. The study was technically difficult. Ordering Physician: Michel Leonard Performed By: Alvarez Lee RCS
[2024-09-08] MEDS: Famotidine 20 MG Tablet PO (10:20)
[2024-09-08 10:28] LABS: Procalcitonin 0.04 ng/mL (<=0.10); TROPONIN VARIANCE 2 HR 222; Troponin T High Sens 2 HR 534 ng/L (<=19)
[2024-09-08] MEDS: Albuterol 2.5 MG/3 ML VIAL.NEB. INHALATION (10:38)
[2024-09-08 12:49] LABS: TROPONIN VARIANCE 4 HR 394; Troponin T High Sens 4 HR 706 ng/L (<=19)
--- NOTE | 2024-09-08 13:28 | CL.D_ITS ---
Patient Name: SHUKRI MCKNIGHT Study Date: 09/08/2024 Performing: Rivas Gaytan MD Ht: 62 inches 157.48 cm : 1960 Wt: 217.38 lbs 98.6 kg Age: 63 Gender: female BSA: 1.98 PROCEDURE(S) PERFORMED DC01-(68901)LHC/COR/LV CLINICAL PROFILE AND INDICATIONS Indications: Suspected CAD, New Onset Angina <= 2 months, Cardiomyopathy Heart Failure: None Stress/Imaging Stress/Image Study Performed: No Angina Classification Anginal Classification w/in 2 Weeks: CCS IV CAD Presentations: Unstable angina. CONCLUSIONS Severe multi-vessel disease LVEF 30%. Right axillary artery bifurcating into radial and ulnar arteries RECOMMENDATIONS Surgery consult for coronary revascularization DESCRIPTION OF PROCEDURE The patient arrived to the procedure lab. The risks and benefits of the procedure as well as a full description of our services here and current unavailability of surgical backup were fully explained to the patient and/or their significant other prior to the catheterization. The Timeout was completed, verifying the correct patient and procedure. The patient's procedural site was prepped and draped in the usual fashion. Local anesthetic was given subcutaneously to right radial region with Lidocaine 2%. Using a modified Seldinger technique, arterial access was obtained via the right radial artery, a 6Fr sheath was inserted. LV to AO pullback pressures were then recorded. Right Coronary Artery selective angiography was then performed in multiple views using a 5 Fr. 4.0 [place] catheter. Left Coronary Artery selective angiography was performed in multiple views using a 5 Fr. 4.0 [place] catheter. Left Ventriculography was performed in [place] projection using a 5 Fr. [place] catheter. LV to AO pullback pressures were then recorded.The arterial sheath was pulled and a TR Band was applied for hemostasis w/ 10ml air CORONARY ANGIOGRAPHY DOMINANCE: Right Dominant LEFT HEART ASSESSMENT Left Ventricular Ejection Fraction: by LV Gram 30 % LVEDP: 42 mmHg LEFT MAIN: Angiographically normal LEFT ANTERIOR DESCENDING ARTERY: LAD: Tubular 95% Proximal lesion in LAD Tubular 50% Mid lesion in LAD Calcified Diffuse 60% Mid lesion in LAD DIAGONAL 1: Tubular 80% Ostial lesion in DIAG1 RAMUS: Tubular 99% Ostial lesion in Ramus RIGHT CORONARY ARTERY: RCA: Tubular 100% Mid lesion in RCA COLLATERAL FLOW: Collateral flow from RCA to RCA COMPLICATIONS No Complications PROCEDURE MEDICATIONS Fentanyl 25 mcg IV Oxygen: 3 L/min via nasal cannula Lasix 40 mg IV 09/08/2024 11:38:02 Heparin given IA 09/08/2024 11:56:27 Heparin 2000 unit(s) IV 09/08/2024 12:25:47 Nitro 200 mcg IC 09/08/2024 12:07:08 Nitro 200 mcg IA 09/08/2024 12:19:33 Verapamil 2.5mg, Ntg 200mcgs, 2000 units of Heparin given IA 09/08/2024 11:56:27 SUMMARY OF HEMODYNAMIC DATA Time AIR REST ECG 11:27:42 LV 117/22, 42 12:00:35 LV 120/23, 38 12:00:43 LVp 116/20, 47 12:00:52 AOp 118/82 (99) 12:00:59 AO 125/91 (104) SA 12:01:23 LV 121/20, 42 12:12:03 LV 119/20, 42 12:12:12 LV 123/33, 47 12:13:40 LV 121/34, 49 12:13:48 LVp 120/33, 47 12:13:51 AOp 117/82 (98) 12:13:58 AO 116/80 (96) 12:18:22 Signed By Rivas Gaytan MD On 09/08/2024 13:35:56 Signed By Rivas Gaytan MD On 09/08/2024 13:28:00 Rivas Gaytan MD
--- NOTE | 2024-09-08 15:07 | CASEMGMT ---
Insurance review for hospitals In-network with [employer] insurance if transfer is recommended is as follows: [facility], [facility], [place], [facility], [facility], [facility], , [place], [facility], [facility], and [place]. Usha Romero, Discharge Planning Asst.
--- NOTE | 2024-09-08 16:51 | PCM.PN.HOSP ---
Reason for Visit Reason for Visit: Diagnoses Nontoxic single thyroid nodule (09/08/24) Pure hypercholesterolemia, unspecified (09/08/24) Hypertensive emergency (09/08/24) Other specified abnormal findings of blood chemistry (09/08/24) Subjective Subjective Seen postprocedure, the results of the test were discussed Objective Data Objective Data Vital Signs: Vital Signs Temp Pulse Resp BP Pulse Ox O2 Del Method O2 Flow Rate 99.7 F H 95 16 137/90 H 97 Nasal Cannula 1 09/08/24 16:35 09/08/24 16:35 09/08/24 16:35 09/08/24 16:35 09/08/24 16:35 09/08/24 16:38 09/08/24 16:38 Oxygen Flow Rate (L/min) 1 Oxygen Delivery Method Nasal Cannula Weight: 217 lb 6.012 oz Body Mass Index (BMI) 39.7 Intake & Output: Intake and Output for Last 24 Hours 09/06/24 09/07/24 09/08/24 23:59 23:59 23:59 Intake Total 1999 Balance 1999 Lab / Micro Data Attestation: I reviewed the patient's lab results. 09/08/24 04:39 09/08/24 04:39 Labs: Laboratory Results - last 24 hr 09/08/24 04:39: WBC 13.0 H, RBC 5.23, Hgb 14.7, Hct 44.1, MCV 84.3, MCH 28.1, MCHC 33.3, RDW Std Deviation 44.3 H, RDW Coeff of [place]ilka 14.4, Plt Count 354, MPV 9.6, Immature Gran % (Auto) 0.600, Neut % (Auto) 81.2 H, Lymph % (Auto) 11.6 L, [place] % (Auto) 5.9, Eos % (Auto) 0.2, Baso % (Auto) 0.5, Absolute Neuts (auto) 10.5 H, Absolute Lymphs (auto) 1.50, Nucleated RBC % 0, PT 13.3, INR 1.0, APTT 32.0, Sodium 137, Potassium 4.0, Chloride 104, Carbon Dioxide 19.5 L, Anion Gap 14, BUN 16, Creatinine 0.79, Estim Creat Clear Calc 76.12, Est GFR (MDRD) Non-Af 83, BUN/Creatinine Ratio 20.5 H, Glucose 162 H, Calcium 9.1, Magnesium 2.1, Total Bilirubin 0.37, Direct Bilirubin 0.16, AST 58 H, ALT 16, Alkaline Phosphatase 104, Troponin T High Sens 312 H*, Total Protein 7.6, Albumin 4.1, Globulin 3.5, Lipase 34 09/08/24 05:35: Urine Color Yellow, Urine Clarity Clear, Urine pH 6.0, Ur Specific [place] 1.010, Urine Protein 15 H, Urine Glucose (UA) Normal, Urine Ketones Negative, Urine Occult Blood Negative, Urine Nitrite Negative, Urine Bilirubin Negative, Urine Urobilinogen Normal, Ur Leukocyte Esterase Negative, Urine RBC 0 SEEN, Urine WBC 0-5 SEEN, Ur Squamous Epith Cells 5-10 SEEN, Urine Bacteria 1+, Urine Mucus 0 SEEN 09/08/24 09:07: Troponin T Hi Sens 2 Hr 534 H*, Troponin T Hi Sens 2Hr Delta 222, Procalcitonin 0.04 09/08/24 11:07: Troponin T Hi Sens 4Hr Cancelled, Troponin T Hi Sens 4Hr Delta Cancelled 09/08/24 11:57: Troponin T Hi Sens 4Hr 706 H*, Troponin T Hi Sens 4Hr Delta 394 Micro: Microbiology 09/08/24 07:28 Mucosa - Nose Respiratory Panel (PCR) - Final 09/08/24 07:28 Mucosa - Nose Coronavirus COVID-19 PCR - Final Radiography Diagnostic Testing: Radiology Impression Chest CTA 09/08/24 04:21 IMPRESSION: Diffuse patchy ground-glass infiltrates within the right lung. Some patchy infiltrates are noted on the left. There is pulmonary interstitial thickening bilaterally. These findings are most compatible with infectious versus inflammatory process within the lungs. Follow-up onto complete resolution is recommended. There is no evidence to suggest pulmonary embolism Hiatal hernia. 6.1 cm right thyroid mass. Further evaluation is warranted. Cholelithiasis. Other findings as above. One or more dose reduction techniques were used (e.g., Automated exposure control, adjustment of the mA and/or kV according to patient size, use of iterative reconstruction technique). Reading Location: [id number] Echocardiogram 09/08/24 09:37 Interpretation Summary Generalized hypokinesis. Severe apical and anterior hypokinesis to akinesis. Estimated LVEF 25-30%. Diastolic dysfunction with indeterminate left atrial pressures. Mild global right ventricular systolic dysfunction. Moderate mitral annular calcification. Mild-Moderate (1-2+) mitral valve insufficiency. The study was technically difficult. Ordering Physician: Michel Leonard Performed By: Alvarez Lee RCS Rhythm Strip Rhythm Strip: Sinus Rhythm Rate: 84 Physical Exam Const alert and oriented x3 HEENT head/scalp atraumatic Eyes PERRL Neck no lymphadenopathy Resp normal respiratory effort Cardio regular rate and regular rhythm Cardio Narrative: No chest pain at the time of examination GI normal to inspection, nondistended, normoactive bowel sounds Extremity normal to inspection Neuro oriented x3 Assessment & Plan Assessment/Plan (1) Elevated troponin: PLAN: Plan 63-year-old patient patient with past medical history of CKD stage II, morbid obesity presented to the ED with concerns regarding NSTEMI. She underwent cardiac catheterization today that showed triple-vessel disease that would likely require coronary artery bypass graft #1. Triple-vessel disease: -Will maintain on aspirin, add high-dose statin, metoprolol and TD nitro paste per cardio, FLP in AM. -Will discuss regarding transfer to higher acuity care for coronary artery bypass graft #2. Acute Hypoxia suspected secondary to NSTEMI: -Continue to monitor for now -Less concerns regarding infection #3. Cholelithiasis: Noted on CT, although pain noted after eating not located in the RUQ, encourage continued follow-up outpatient. #4. Possible Chronic Kidney Disease Stage II per GFR trending: Admission BUN/Cr 16/0.79, GFR 83, baseline renal function unknown, repeat BMP in AM. #5. Hyperglycemia: Admission glucose 162, no diabetic history, he 1 A1c requested to be cautious. #6. Elevated BP without hypertensive diagnosis: BP elevated above goal, per current list already chronic regimen, IV hydralazine in the interim. #7. Incidentally noted thyroid mass: CT with an incidentally noted 6.1 cm right thyroid mass, TSH and free T4 requested. #8. Morbid Obesity: Weight loss and lifestyle changes encouraged. #9. Former tobacco use: Encourage continued tobacco cessation. #10. DVT prophylaxis: Therapeutic Lovenox as noted.
--- NOTE | 2024-09-08 16:56 | PCM.DC.SUM ---
Providers Date of Admission: 09/08/24 Date of Discharge: 09/08/24 Primary Care Physician: Dr. Nuria Shah MD Consultations 09/08/24 07:23 Consult: Cardiology Routine Consulting Provider: Michel Leonard Reason for Consult: Chest Pain, HTN emergency, NSTEMI EMERGENT Consult: No MD Notified: Yes Date Notified: 09/08/24 Time Notified: 06:36 Method of Notification: ED Physician Initiated Reason For Visit: CHEST PAIN, HTN EMERGENCY/NSTEMI Diagnosis Discharge Diagnosis (1) Elevated troponin: Status: Acute Code(s): R79.89 - Other specified abnormal findings of blood chemistry Plan 63-year-old patient patient with past medical history of CKD stage II, morbid obesity presented to the ED with concerns regarding NSTEMI. She underwent cardiac catheterization today that showed triple-vessel disease that would likely require coronary artery bypass graft #1. Triple-vessel disease: -Will maintain on aspirin, add high-dose statin, metoprolol and TD nitro paste per cardio, FLP in AM. -Will discuss regarding transfer to higher acuity care for coronary artery bypass graft #2. Acute Hypoxia suspected secondary to NSTEMI: -Continue to monitor for now -Less concerns regarding infection #3. Cholelithiasis: Noted on CT, although pain noted after eating not located in the RUQ, encourage continued follow-up outpatient. #4. Possible Chronic Kidney Disease Stage II per GFR trending: Admission BUN/Cr 16/0.79, GFR 83, baseline renal function unknown, repeat BMP in AM. #5. Hyperglycemia: Admission glucose 162, no diabetic history, he 1 A1c requested to be cautious. #6. Elevated BP without hypertensive diagnosis: BP elevated above goal, per current list already chronic regimen, IV hydralazine in the interim. #7. Incidentally noted thyroid mass: CT with an incidentally noted 6.1 cm right thyroid mass, TSH and free T4 requested. #8. Morbid Obesity: Weight loss and lifestyle changes encouraged. #9. Former tobacco use: Encourage continued tobacco cessation. #10. DVT prophylaxis: Therapeutic Lovenox as noted. Medications at Discharge Home Medications NK 09/08/24 Hospital Course Operations None Procedures None Summary of Care Provided Hospital Course: 58-year-old patient presented to the ED with concerns regarding chest pain as well as found to have NSTEMI, she underwent cardiac catheterization today and was noted to have a multivessel disease, presently being transferred to higher acuity care at [facility] for evaluation for coronary artery bypass graft Physical Exam Const alert and oriented x3 General Appearance: cooperative HEENT normocephalic Eyes PERRL, EOMs intact bilaterally and conjunctivae normal Neck no lymphadenopathy, supple, no JVD and no carotid bruits Resp normal respiratory effort, no retractions, no use of accessory muscles and clear to auscultation bilaterally Cardio regular rate, regular rhythm, S1 normal heart sound, S2 normal heart sound, no murmurs, no rub, no gallops, no clicks and no JVD GI normal to inspection, nondistended, normoactive bowel sounds, soft to palpation, non-tender, non-distended and hepatosplenomegaly Neuro oriented x3 Sensorium / Orientation: awake and alert Weight / BMI Weight Weight: 217 lb 6.012 oz Body Mass Index (BMI) 39.7 ABG / Lab / Microbiology Data 09/08/24 04:39 09/08/24 04:39 Laboratory: Laboratory Results - last 24 hr 09/08/24 04:39: WBC 13.0 H, RBC 5.23, Hgb 14.7, Hct 44.1, MCV 84.3, MCH 28.1, MCHC 33.3, RDW Std Deviation 44.3 H, RDW Coeff of Yamilka 14.4, Plt Count 354, MPV 9.6, Immature Gran % (Auto) 0.600, Neut % (Auto) 81.2 H, Lymph % (Auto) 11.6 L, Gates % (Auto) 5.9, Eos % (Auto) 0.2, Baso % (Auto) 0.5, Absolute Neuts (auto) 10.5 H, Absolute Lymphs (auto) 1.50, Nucleated RBC % 0, PT 13.3, INR 1.0, APTT 32.0, Sodium 137, Potassium 4.0, Chloride 104, Carbon Dioxide 19.5 L, Anion Gap 14, BUN 16, Creatinine 0.79, Estim Creat Clear Calc 76.12, Est GFR (MDRD) Non-Af 83, BUN/Creatinine Ratio 20.5 H, Glucose 162 H, Calcium 9.1, Magnesium 2.1, Total Bilirubin 0.37, Direct Bilirubin 0.16, AST 58 H, ALT 16, Alkaline Phosphatase 104, Troponin T High Sens 312 H*, Total Protein 7.6, Albumin 4.1, Globulin 3.5, Lipase 34 09/08/24 05:35: Urine Color Yellow, Urine Clarity Clear, Urine pH 6.0, Ur Specific Rosamond 1.010, Urine Protein 15 H, Urine Glucose (UA) Normal, Urine Ketones Negative, Urine Occult Blood Negative, Urine Nitrite Negative, Urine Bilirubin Negative, Urine Urobilinogen Normal, Ur Leukocyte Esterase Negative, Urine RBC 0 SEEN, Urine WBC 0-5 SEEN, Ur Squamous Epith Cells 5-10 SEEN, Urine Bacteria 1+, Urine Mucus 0 SEEN 09/08/24 09:07: Troponin T Hi Sens 2 Hr 534 H*, Troponin T Hi Sens 2Hr Delta 222, Procalcitonin 0.04 09/08/24 11:07: Troponin T Hi Sens 4Hr Cancelled, Troponin T Hi Sens 4Hr Delta Cancelled 09/08/24 11:57: Troponin T Hi Sens 4Hr 706 H*, Troponin T Hi Sens 4Hr Delta 394 Microbiology: Microbiology 09/08/24 07:28 Mucosa - Nose Respiratory Panel (PCR) - Final 09/08/24 07:28 Mucosa - Nose Coronavirus COVID-19 PCR - Final Radiography Diagnostic Testing: Radiology Impression Chest CTA 09/08/24 04:21 IMPRESSION: Diffuse patchy ground-glass infiltrates within the right lung. Some patchy infiltrates are noted on the left. There is pulmonary interstitial thickening bilaterally. These findings are most compatible with infectious versus inflammatory process within the lungs. Follow-up onto complete resolution is recommended. There is no evidence to suggest pulmonary embolism Hiatal hernia. 6.1 cm right thyroid mass. Further evaluation is warranted. Cholelithiasis. Other findings as above. One or more dose reduction techniques were used (e.g., Automated exposure control, adjustment of the mA and/or kV according to patient size, use of iterative reconstruction technique). Reading Location: [id number] Echocardiogram 09/08/24 09:37 Interpretation Summary Generalized hypokinesis. Severe apical and anterior hypokinesis to akinesis. Estimated LVEF 25-30%. Diastolic dysfunction with indeterminate left atrial pressures. Mild global right ventricular systolic dysfunction. Moderate mitral annular calcification. Mild-Moderate (1-2+) mitral valve insufficiency. The study was technically difficult. Ordering Physician: Michel Leonard Performed By: Alvarez Lee RCS D/C Instructions DC O2, CPAP, BIPAP Needs Home O2 Discharge instructions: No Meaningful Use Info Meaningful Use Meaningful Use Diagnoses (Choose all that apply): AMI AMI/Post PCI/Angioplasty Aspirin given w/in 24hrs of arrival?: Yes ASA at discharge?: Yes Antiplatelet Therapy at Discharge:: Yes Statins at discharge?: Yes Luis M/ARB at discharge?: Yes Beta Yony at discharge?: Yes Done w/ Acute MO measure.: Yes Ischemic Stroke Statin Dosing Therapy Reference: STATIN DOSE THERAPY REFERENCE: * Patients > 75 years receive moderate or high dose statin therapy. * Patients 75 years or YOUNGER should receive HIGH intensity statin dose unless contraindicated. You will be required to document reason for non-treatment if statin daily dose does not meet guidelines. HIGH DOSE STATIN THERAPY DAILY Atorvastatin > than or = to 40 mg Rosuvastatin > than or = to 20 mg Amlodipine + Atorvastatin > than or = to 2.5/40 mg Ezetimibe + Simvastatin 10/80 mg Simvastatin 80mg Discharge Plan Admission Admit Date/Time: 09/08/24 06:36 Primary Reason for Your Visit: NSTEMI Attending Provider: Randolph Duncan Primary Care Provider: Nuria Shah Consulting Providers: Michel Leonard; Eleni Rogers Discharge Orders/Prescriptions Prescriptions: No Action NK Referrals / Follow Up: Nuria Shah MD [Primary Care Provider] -
== END 2024-09-08 20:45 | disposition short-term general hospital (02) | DRG 281 ==
LOC: ED 06:31 → PCU 06:52 → CLINP 11:44 → PCU 16:37
PROVIDERS: Admitting Provider Family Medicine; Emergency Provider Emergency Medicine; PCP Internal Medicine; Visit Provider Internal Medicine
DX: I21.4 Non-ST elevation (NSTEMI) myocardial infarction (principal); I16.1 Hypertensive emergency; E66.01 Morbid (severe) obesity due to excess calories; E04.1 Nontoxic single thyroid nodule; I25.10 Atherosclerotic heart disease of native coronary artery without angina pectoris; N18.2 Chronic kidney disease, stage 2 (mild); K80.20 Calculus of gallbladder without cholecystitis without obstruction; E78.00 Pure hypercholesterolemia, unspecified; R09.02 Hypoxemia; R73.9 Hyperglycemia, unspecified; Z87.891 Personal history of nicotine dependence; Z68.39 Body mass index [BMI] 39.0-39.9, adult
CPT/HCPCS: 36415; 71275; 80048; 80076; 81001; 83690; 83735; 84145; 84484; 85025; 85610; 85730; 87633; 87635; 93005; 93306; 93458; 94640; 94668; 99152; 99153; 99284; Q9957; Q9967; A4216; C1769; C1894; C8929; J1938; J2405

== ENCOUNTER → 2024-10-14 | Outpatient (CLI) | payer OTHER, SELFPAY ==
[2024-10-14 11:02] LABS: Hemoglobin A1c 5.4 % (<=5.6)
[2024-10-14 11:16] LABS: AST(SGOT) 18 U/L (<=31); Alanine Aminotransfer ALT/SGPT 8 U/L (<=34); Alkaline Phosphatase 98 U/L (35-104); Bilirubin, Direct 0.15 mg/dL (0.00-0.30); Cholesterol 123 mg/dL (<=200); Globulin 3.4 g/dL (2.2-4.2); High Density Lipoprotein 55 mg/dL; Low Density Lipoprotein Calc. 44 mg/dL; Protein, Total 7.4 g/dL (5.9-8.4); Total Bilirubin 0.31 mg/dL (0.00-1.30); Triglycerides 124 mg/dL; Very Low Density Lipoprotein 25 mg/dL (5-40); cholesterol:hdl ratio screen 2.26
== END | disposition home or self-care (01) ==
PROVIDERS: PCP Internal Medicine; Referring Provider Nurse Practitioner Family; Visit Provider Nurse Practitioner Family
DX: E78.00 Pure hypercholesterolemia, unspecified (principal); I25.5 Ischemic cardiomyopathy; Z95.1 Presence of aortocoronary bypass graft
CPT/HCPCS: 36415; 80061; 80076; 83036

== ENCOUNTER → 2024-10-21 | Outpatient (CLI) | payer OTHER, SELFPAY ==
--- NOTE | 2024-10-21 08:55 | PCM.CR.HP2 ---
CR - History & Physical General Arrival date:: 10/21/24 Arrival time:: 08:55 Date of Referral:: 10/14/24 Date of CR Evaluation:: 10/21/24 Referring Physician: Dr. Leonard Primary Diagnosis: s/p CABG History of Present Cardiac Event Onset Date Coronary Artery Bypass Graft:: Yes (onset 09/14/24) Vessel: SVG to LAD, SVG to OM1 SVG to PDA-TRAN Medications Ambulatory Orders ?Medication ?Instructions ?Recorded acetaminophen 500 mg tablet 1,000 mg PO Q6H PRN 10/14/24 (Tylenol Extra Strength) aspirin 81 mg tablet,delayed 81 mg PO QDAY 10/14/24 release (Adult Low Dose Aspirin) dapagliflozin propanediol 10 mg 10 mg PO DAILY #30 tabs 10/14/24 tablet (Farxiga) pantoprazole 40 mg tablet,delayed 40 mg PO QDAY 10/14/24 release clopidogrel 75 mg tablet (Plavix) 75 mg PO QDAY #90 tabs 10/18/24 metoprolol succinate 50 mg 75 mg (1.5 x 50 mg) PO QDAY #90 10/18/24 tablet,extended release 24 hr tabs rosuvastatin 40 mg tablet 40 mg PO QDAY #90 tabs 10/18/24 spironolactone 25 mg tablet 25 mg PO QDAY #90 tabs 10/18/24 Allergies Allergies No Known Allergies Allergy (Verified 10/14/24 08:47) Sleep Disorder Evaluation Hx of Sleep Apnea: No Do you snore loudly (louder than talking or can be heard through closed doors)?: No Do you often feel tired/ fatigued/ sleepy during daytime?: No Has anyone observed you stop breathing during sleep?: No History of Hypertension (for STOP score): No STOP Results: Negative Advanced Directives Advanced Directives Do you have a Healthcare Power of Race Relations Professor?: No Living Will: No Advance Directives Information Provided: No Advance Directives on File: No DNR Order?:: No Past Medical History Covid-19 Screening Physicial Symptoms Other Clinical Concerns Exposure Risk Pertinent Comorbidities Has a serious heart condition:: Yes Past Medical Illness Past Medical History (Updated 10/14/24 @ 09:15 by Vinny Alejo NP, [employer]ER-[employer]) Former tobacco use Z87.891 CKD (chronic kidney disease), stage II N18.2 Morbid obesity E66.01 Past Surgical History Past Surgical History (Updated 10/14/24 @ 09:15 by Vinny Alejo SLEEPING BAG FILLER, [employer]EP[employer]ER-C) Hx of CABG Z95.1 09/14/2024 [facility] History of bilateral tubal ligation Z98.51 [place] teeth extracted K08.409 History of tonsillectomy and adenoidectomy Z90.89 Family History Summary Family History Mother IBD (inflammatory bowel disease) Macular degeneration Father Hypertension Heart disease CAD (coronary artery disease) Myocardial infarction Social History Smoking History Smoking Status: Former smoker Years Smokin Packs Smoked per Day: 0.5 (stopped about 31 years ago) Alcohol Use Alcohol Usage: Yes (occas) Substance Abuse Hx Substance Use: No Occupation Occupation (List type of work in comments):: Retired Social Environment Status Marital Status: Current Living Arrangements Living Environment:: Spouse Children How many children do you have?: 2 Do any of your children live nearby?: Yes Safety Do you feel safe in your surroundings?: Yes Assistance Do you need any assistance at home?: no Review of Systems Review of Systems Hints Review of Present Symptoms: Reports Shortness of Breath with Exertion, Operative Discomfort, Fatigue, Appetite - Normal and Appetite - Special Diet; Denies Shortness of Breath at Rest, PVD, Angina, Wound Healing, Dizziness/Lightheadedness, Heart Arrhythmia/Irregularities, Sleep - Normal or Sexual Changes Pain Is Patient Pain Free?: Yes Risk Factor Assessment Chief Complaint Chief Complaint: s/p CABG Vital Signs Pulse Ox: 95 Blood Pressure: 109/73 Pulse Pulse Rate: 73 Obesity Height: 5 ft 2 in Weight:: 197 lb Weight in Pounds: 197.0 lbs Body Mass Index (BMI): 36.0 Physical Inactivity Physical Inactivity: Reg Exercise 30 min/day Risk Stratification Risk Guidelines: Lowest Risk: Risk Factor for Smoking, Moderate Risk: Risk Factor for Diabetes, Risk Factor for Obesity, Risk Factor for Hypertension, Risk Factor for Sedentary Lifestyle and Risk Factor for Depression and Highest Risk: Risk Factor for Dyslipidemia For Smoking Smoking Risk Guidelines For Dyslipidemia Dyslipidemia Risk Guidelines For Diabetes Mellitus Diabetes Risk Guidelines For Obesity/Overweight Obesity/Overweight Risk Guidelines For Hypertension Hypertension Risk Guidelines For Sedentary Lifestyle Sedentary Lifestyle Risk Guidelines For Depression Depression Risk Guidelines Family History Family History Mother IBD (inflammatory bowel disease) Macular degeneration Father Hypertension Heart disease CAD (coronary artery disease) Myocardial infarction Motivation Motivation to Participate On a scale of 1 to 10, how prepared are you to commit to attending program?: 10 What do you see as barriers to successfully being able to complete the program?: nothing What do you see as the benefits of succesfully completing the program? In other words, what do you hope to get out of participating in the program?: more energy Are there issues you are dealing with that will interfere with completing the program?: no Do you have a spouse or signficant other, family or friends who will help support you to complete the program?: yes
[2024-10-21 09:00] VITALS: BP 109/73; PULSE 73; O2SAT 95
--- NOTE | 2024-10-21 09:00 | CR.ITP_ITS ---
Diagnosis General Information Admitting Diagnosis: s/p CABG Personal Learning Style:: Audio/Visual Barriers to Learning: No Barriers Stage of change r/t lifestyle modifications:: Contemplation Gave educational material for:: Treating Heart Disease, How The Heart Works, What it means to have Heart Disease, How Coronary Artery Disease is Diagnosed, Heart Procedures, What Heart Medications Do, Risk Factors & Modifications, Meenakshi ng an Active Life, Nutrition, Emotions & Heart Disease, Stress Management & Relaxation and Sleep Disorders & Heart Disease Education/Goals Cardiac Rehabilitation Goals Personal Goals: Initial Assessment: Improve management of stress and emotions, Improve energy level, Participate in home exercise program, Get back to work, or to resume activities faster, Improve knowledge of cardiac disease, Improve muscle strength and endurance, Improve diet and eating habits (eat healthier) and Control risk factors (learn risk factor modification) Scale for measuring improvement of personal goals Diagnosis & Disease Process Outcomes/Goals: Pt IDs own risk factors & lifestyle modifications by Session 10, Verbalizes symptoms of angina & response by session 3., Pt independently manages and Other Additional Outcomes/Goals: Plan/Interventions: Assist Pt to ID & engage in lifestyle modification to reduce CVD risk, Instruct on individual risk factors, Review symptoms of angina & emergency actions, Review secondary diagnosis & identify educational needs. and Other see comment 30 day Reassessments:: Not Met 30 day Reassessments:: Not Met 30 day Reassessments:: Not Met 30 day Reassessments:: Not Met Final Reassessments:: Not Met Safety Referral to Physical Therapy: No Referral to [facility] Case Management: No Fall Risk Assessed:: Yes Assistive Devices:: None Exercise - Initial Assessment Visit Date of Eval: 10/21/24 (initial eval) Mets: Pre-: >5 METS for 30 minutes by discharge Physician Prescribed Exercise Modalities: Treadmill, Schwinn Airdyne AD-7, SciFit Stepper, Penelope's PurseFit Pro-II Ergometer and SciFit Lateral Associate Merchandise Planner Frequency: 3x/week for 12 weeks [36 sessions] Intensity: 60-80% of age predicted maximum heart rate reserve Duration: 30 - 45 minutes Current METSs:: 3 Target Heart Rate:: 92-116 Resting Blood Pressure: 109/73 EKG Type: ST w/ventricualr trigeminy, LVH w/ secondary repolarization abnormality Outcomes & Goals Goals:: Verbalizes understanding of THR, RPE & goal METS by session 6, Documents in home exercise log/reports 30 min aerobic 5 day/wk by DC, Demonstrates accurate pulse taking by DC and Other additional outcome/goals: see below Intervention & Plan Exercise Program Goals: Instruct on personal THR & RPE, Instruct on MET level & personal MET goal, Show patient to take own pulse /validate performance until accurate, Instruct on home exercise and Other additional plan/int Physical Activity Home Exercise Physical Activity - Home Exercise: Safe Exercise, Warm-up, Self-monitoring, Cool-Down, Home Exercise > 30 min Daily and Sitting Time <3 hours/daily Outcomes & Goals Outcomes/Goals: Demonstrates correct Warm-up/exercise Cool-Down (S3) if = 2.5 METs, Verbalizes symptoms of exercise intolerance by Session 3 (S3), Demonstrate safe equipment use (S3) & follows exercise prescrition (6) and Other: See below Intervention & Plan Plan/Intervention: Instruct warm-up & cool-down if exercising at > 2 METs, Instruct on symptoms of exercise intolerance & actions to take, Instruct & monitor on saf, Assess intial functional capacity & safety risk and Other See below Nutrition - Initial Assessment Program Goals Nutrition Program Goals Patient has diagnosis of Hyperlipidemia (ICD E78)?: Yes Visit Date of Eval: 10/21/24 (initial eval ) Cholesterol/Lipids (Other Core Measures) Determine presence & major risk factors that modify LDL goal: Hypertension or hypertensive medication, Low HDL cholesterol <40 mg/dL*, Family history of premature CHD in Male < 55 years: female <65 yearsFa and Age men > 45 years; women >/= 55 years Outcomes/Goals: Pt IDs own risk factors & lifestyle modifications by Session 10, Verbalizes symptoms of angina & response by session 3., Pt independently manages and Other Additional Outcomes/Goals: Intervention/Plan: Advocate for lipid panel cholesterol medication if applicable, Instruct on personal lipid levels & lipid goals/NCEP guidelines, Instruct on cholesterol and Other additional plan/int Referral to dietitian:: Yes Diabetes (Other Core Measures) Diabetes Type: Not Applicable Weight Mgt (Other Care) Height: 5 ft 2 in Weight:: 197 lb BMI: 36.0 Diagnosis Overweight/Obesity BMI> 30% ICD-10 E66: Yes Diagnosis High BMI/Morbid Obesity BMI> 35% ICD-10 Z68: Yes Outcomes/Goals: Pt sets, maintains & shows weight loss goal & trend during rehab and Other additional outcomes/goals Intervention/Plan: Instruct on ideal BMI & set weight loss goal w/patient, Assist pt to ID & incorporate diet changes for weight loss by S9, Refer to Structured Weight Loss program as appropriate, Encourage goal of using 250- 300dcal per session for weight loss and Other additional plan/interventions Healthy Eating Habits Will attend diet classes:: Yes Outcomes/Goals:: Consume diet rich in vegs,fruits,whole grain/high fiber,fish,lean meat, Limit sat/trans fats,cholesterol & added salts & sugars and Other additional outcome/goals: Intervention/Plan:: Assess current eating habits and Other Additional plan/interventions Education Gave educational materials for:: Signs & symptoms of hypoglycemia, Signs & symptoms of hyperglycemia, Relate diabetes to coronary artery disease and Healthy eating Core - Initial Assessment Visit Date of Eval: 10/21/24 (initial eval ) Medication Compliance Preventative Medication(s):: Aspirin, Clopidogrel/P2Y12 inhibit, Statin/lipid and Beta david H/O mental health issues: depression, anxiety, or addiction?: No Doesn?t believe in the benefits of treatment?: No Believes medications are unnecessary or harmful?: No Has a concern about medication side effects?: No Expresses concern over the cost of medications?: No Outcomes/Goals: Verbalizes medications,desired effect & common side effects @ DC, Pt self-reports following medication regimen, Keeps card in wallet w/medications listed by DC and Other additional outcome/goals: Interventions/plans: Instruct on medication effects & side effects, Review m edication list w/patient every two weeks, Instruct importance of taking meds as ordered & assist problem solving and Other additional Tobacco Use Tobacco Use: Non-smoker Hypertension Resting Blood Pressure:: 109/73 [place] [employer] Hypertension Guidelines Outcomes/Goals: Able to verbalize/achieve optimal blood pressure <130/80, Incorporates diet changes & exercise for blood pressure control by DC and Other additional outcomes/goals Interventions/plan: Instruct on optimal blood pressure, hypertension & medications, Instruct on effects of sodium, alcohol, stress, exercise &hypertension and Other additional plan/interventions Tobacco Cessation Referral Smoking Cessation Referral:: No Individual Education/Counseling:: No Education Schedule Given:: Yes Psychosocial - Initial Assess VIsit Date of Eval: 10/21/24 (initial eval ) History of previous Mental disease:: No Target Goals Target Goals Psychosocial Test Tool Used:: [employer] Power QOL Cardiac and PHQ-9 Questionnaire phq-9 Severity Referral to Behavioral Health PS - Interventions: Yes: Attend Stress Management Classes Outcomes/Goals: See list Psychosocial Outcomes/Goals:: ID's personal stressors & 2 strategies to manage stress by discharge and Other Additional outcome/goals: Intervention/Plan: See List Interventions/Plan:: Assess stressors,coping strategies & signs of derpression on admission, Instruct/assist pt to develop coping & personal stress Mgt strategies, Refer to Behavioral Health if appropriate, Refer to Physician if appropriate, Instruct patient to recognize signs & symptoms of depression, Instruct patient to recog and Other additional plan/intervention Patient Health Questionnaire PHQ-9 Screening Initial Assessment: 1. Little interest or pleasure in doing things: Not at all 2. Feeling down, depressed, or hopeless: Several days 3. Trouble falling or staying asleep, or sleeping too much: Nearly every day 4. Feeling tired or having little energy: Several days 5. Poor appetite or overeating: Not at all 6. Feeling bad about yourself -- or that you are a failure or have let yourself or your family down: Not at all 7. Trouble concentrating on things, such as reading the newspaper or watching television: Not at all 8. Moving or speaking so slowly that other people could have noticed. Or the opposite - being so fidgety or restless that you have been moving around a lot more than usual: Not at all 9. Thoughts that you would be better off , or of hurting yourself in some way: Not at all How difficult have these problems made it for you to do your work, take care of things at home, or get along with other people?: Not difficult at all Total Score: 5 FAUZIA-Q SV Test Statements CAD is a disease of the arteries in the heart: False Examples of risk factors for heart disease: True Angina is chest pain or discomfort: I Don't Know The benefits of resistance training include: True Eating more meat and dairy products: False Anti-platelet medications such as aspirin are important: True The only effective way to manage stress: False An exercise warm-up slowly increases heart rate: True Prepared, processed foods usually have high sodium: True Depression is common after a heart attack: True The statin medications lower cholesterol: True To control blood pressure, lower the amount of sodium: True If someone gets chest discomfort during walking: False Transfats are partially hydrogenated vegetable oils: True Sleep apnea that is not treated increases the risk: False To control cholesterol, one should become a vegetarian: False Someone knows if he/she is exercising at the right level: True Diabetes cannot be prevented with exercise & health eating: True Stress is a large risk for heart attack: True A diet that can help lower blood pressure is rich in: True Total Score Total Correct Responses: 18 Self-Efficacy 6-Item Scale Initial Assessment: We would like to know how confident you are in doing certain activities. Please select your confidence level for: Fatigue Select Number: 5 Physical Discomfort or Pain Select Number: 7 Emotional Distress Select Number: 8 Other Symptoms or Health Problems Select Number: 8 Different Tasks and Activities Select Number: 8 Medication Select Number: 8 Total Score:: 7 Nutrition Survey Nutrition Survey Instructions Scoring Instructions Nutrition Survey Initial: Have you lost >10 lbs over the past 2 months without trying?: Yes Are you following a special diet at home for diabetes, low fat, or low salt?: Yes Are you interested in meeting with a dietitian for help understanding your diet?: Yes Do you eat less than 3 meals a day?: No Do you eat fatty meats (alvarez, sausage, ribs, etc), fried foods, desserts, large amounts of salad dressings, margarine, butter, or cheese most days?: No Do you have food allergies? [Enter types in comment field]: No Do you eat in restaurants more than 3 times a week?: No Do you season food with salt, seasoning salt, or garlic salt?: No Do you used canned, boxed, frozen meals, or soups, seasoning packets?: Yes Total Score:: 4 Exercise - 30-day Assessment Physician Prescribed Exercise Modalities: Treadmill, Schwinn Airdyne AD-7, SciFit Stepper, SciFit Pro-II Ergometer and SciFit Lateral Associate Merchandise Planner Exercise - 60-day Assessment Physician Prescribed Exercise Modalities: Treadmill, Schwinn Airdyne AD-7, SciFit Stepper, SciFit Pro-II Ergometer and SciFit Lateral [place] Exercise - 90-day Assessment Physician Prescribed Exercise Modalities: Treadmill, Schwinn Airdyne AD-7, SciFit Stepper, SciFit Pro-II Ergometer and SciFit Lateral Associate Merchandise Planner Exercise - Final/Discharge Physician Prescribed Exercise Modalities: TreadmillSalvador AD-7, SciFit Stepper, SciFit Pro-II Ergometer and SciFit Lateral Associate Merchandise Planner Frequency: 3x/week for 12 weeks [36 sessions] Intensity: 60-80% of age predicted maximum heart rate reserve Current METSs:: 3 Target Heart Rate:: 92-116 Nutrition - 30-Day Assessment Weight Mgt (Other Care) Height: 5 ft 2 in Weight:: 197 lb BMI: 36.0 Nutrition - 60-Day Assessment Weight Mgt (Other Care) Height: 5 ft 2 in Weight:: 197 lb BMI: 36.0 Core - Final Assessment Hypertension Resting Blood Pressure:: 109/73 [place] [employer] Hypertension Guidelines Core - 60-Day Assessment Hypertension Resting Blood Pressure:: 109/73 [place] [employer] Hypertension Guidelines Psychosocial - 30-Day Assess Target Goals Target Goals Referral to Behavioral Health PS - Interventions: Yes: Attend Stress Management Classes Psychosocial - 60-Day Assess Target Goals Target Goals Referral to Behavioral Health PS - Interventions: Yes: Attend Stress Management Classes Psychosocial - 90-Day Assess Target Goals Target Goals Referral to Behavioral Health PS - Interventions: Yes: Attend Stress Management Classes Psychosocial - Final Assessmen Target Goals Target Goals Referral to Behavioral Health PS - Interventions: Yes: Attend Stress Management Classes Nutrition - 90-Day Assessment Weight Mgt (Other Care) Height: 5 ft 2 in Weight:: 197 lb BMI: 36.0 Nutrition - Final Assessment Program Goals Patient has diagnosis of Hyperlipidemia (ICD E78)?: Yes Weight Mgt (Other Care) Height: 5 ft 2 in Weight:: 197 lb BMI: 36.0
[2024-10-21 09:05] VITALS: BP 109/73
[2024-10-21 09:46] VITALS: BMI 36.0
[2024-10-21 09:47] VITALS: BMI 36.0
== END | disposition home or self-care (01) ==
LOC: CR 08:51
PROVIDERS: PCP Internal Medicine; Referring Provider Internal Medicine Cardiovascular Disease; Visit Provider Internal Medicine Cardiovascular Disease
DX: Z95.1 Presence of aortocoronary bypass graft (principal); E66.01 Morbid (severe) obesity due to excess calories; E78.5 Hyperlipidemia, unspecified; N18.2 Chronic kidney disease, stage 2 (mild); Z79.82 Long term (current) use of aspirin; Z79.02 Long term (current) use of antithrombotics/antiplatelets; Z79.899 Other long term (current) drug therapy; Z87.891 Personal history of nicotine dependence; Z68.36 Body mass index [BMI] 36.0-36.9, adult

== ENCOUNTER 2024-11-03 10:15 | Outpatient (RCR) | payer OTHER, SELFPAY ==
[2024-10-21 09:46] VITALS: BMI 36.0
== END 2024-11-03 23:59 ==
LOC: CR 10:15
PROVIDERS: PCP Internal Medicine; Referring Provider Internal Medicine Cardiovascular Disease; Visit Provider Internal Medicine Cardiovascular Disease
DX: Z95.1 Presence of aortocoronary bypass graft (principal); I25.5 Ischemic cardiomyopathy
CPT/HCPCS: 93798

== ENCOUNTER 2024-12-03 10:15 | Outpatient (RCR) | payer OTHER, SELFPAY ==
[2024-10-21 09:46] VITALS: BMI 36.0
--- NOTE | 2024-11-18 08:02 | PCM.CR.ITP ---
Exercise - Initial Assessment Visit Session #:: 10 Physician Prescribed Exercise Modalities: Treadmill, SciFit Stepper and SciFit Lateral [facility] Nutrition - Initial Assessment Weight Mgt (Other Care) Height: 5 ft 2 in Weight:: 196 lb 8 oz BMI: 35.9 Psychosocial - Initial Assess Target Goals Target Goals Referral to Behavioral Health PS - Interventions: Yes: Attend Stress Management Classes Patient Health Questionnaire PHQ-9 Screening 30-Day Re-eval Assessment: 1. Little interest or pleasure in doing things: Not at all 2. Feeling down, depressed, or hopeless: Several days 3. Trouble falling or staying asleep, or sleeping too much: Nearly every day 4. Feeling tired or having little energy: Several days 5. Poor appetite or overeating: Not at all 6. Feeling bad about yourself -- or that you are a failure or have let yourself or your family down: Not at all 7. Trouble concentrating on things, such as reading the newspaper or watching television: Not at all 8. Moving or speaking so slowly that other people could have noticed. Or the opposite - being so fidgety or restless that you have been moving around a lot more than usual: Not at all 9. Thoughts that you would be better off , or of hurting yourself in some way: Not at all How difficult have these problems made it for you to do your work, take care of things at home, or get along with other people?: Not difficult at all Total Score: 5 Self-Efficacy 6-Item Scale 30-Day Re-eval Assessment: We would like to know how confident you are in doing certain activities. Please select your confidence level for: Fatigue Select Number: 5 Physical Discomfort or Pain Select Number: 7 Emotional Distress Select Number: 8 Other Symptoms or Health Problems Select Number: 8 Different Tasks and Activities Select Number: 8 Medication Select Number: 8 Total Score:: 7 Nutrition Survey Nutrition Survey Instructions Scoring Instructions Exercise - 30-day Assessment Visit Date of Eval: 11/18/24 Session #:: 10 Physician Prescribed Exercise Modalities: Treadmill, SciFit Stepper and SciFit Lateral [employer] Application Dev Specialist Frequency: 3x/week for 12 weeks [36 sessions] Intensity: 60-80% of age predicted maximum heart rate reserve Duration: 30 - 45 minutes Current METSs:: 3.8 Target Heart Rate:: 92-116 Current RPE:: 12 Maximum Excercise HR:: 95 Resting Blood Pressure: 110/68 Maximum Exercise Blood Pressure: 130/72 EKG Type: NSR w/ rare PAC/PVC Outcomes & Goals Goals:: Verbalizes understanding of THR, RPE & goal METS by session 6, Documents in home exercise log/reports 30 min aerobic 5 day/wk by DC, Demonstrates accurate pulse taking by DC and Other additional outcome/goals: see below Intervention & Plan Exercise Program Goals: Instruct on personal THR & RPE, Instruct on MET level & personal MET goal, Show patient to take own pulse /validate performance until accurate, Instruct on home exercise and Other additional plan/int Physical Activity Home Exercise Physical Activity - Home Exercise: Safe Exercise, Warm-up, Self-monitoring, Cool-Down, Home Exercise > 30 min Daily and Sitting Time <3 hours/daily Outcomes & Goals Outcomes/Goals: Demonstrates correct Warm-up/exercise Cool-Down (S3) if = 2.5 METs, Verbalizes symptoms of exercise intolerance by Session 3 (S3), Demonstrate safe equipment use (S3) & follows exercise prescrition (6) and Other: See below Intervention & Plan Plan/Intervention: Instruct warm-up & cool-down if exercising at > 2 METs, Instruct on symptoms of exercise intolerance & actions to take, Instruct & monitor on saf, Assess intial functional capacity & safety risk and Other See below 30-day Reassessments 30 day Reassessments:: Progressing Reassessment Notes & Comments:: RPE explained to pt. Pt is able to demonstrate understanding in her daily sessions. Exercise - 60-day Assessment Physician Prescribed Exercise Modalities: Treadmill, SciFit Stepper and SciFit Lateral Web Application Dev Specialist Exercise - 90-day Assessment Physician Prescribed Exercise Modalities: Treadmill, SciFit Stepper and SciFit Lateral [employer] Application Dev Specialist Exercise - Final/Discharge Physician Prescribed Exercise Modalities: Treadmill, SciFit Stepper and SciFit Lateral [facility] Nutrition - 30-Day Assessment Program Goals Nutrition Program Goals Patient has diagnosis of Hyperlipidemia (ICD E78)?: Yes Visit Date of Eval: 11/18/24 Session #:: 10 Cholesterol/Lipids (Other Core Measures) Determine presence & major risk factors that modify LDL goal: Hypertension or hypertensive medication, Low HDL cholesterol <40 mg/dL*, Family history of premature CHD in Male < 55 years: female <65 yearsFa and Age men > 45 years; women >/= 55 years Outcomes/Goals: Pt IDs own risk factors & lifestyle modifications by Session 10, Verbalizes symptoms of angina & response by session 3., Pt independently manages and Other Additional Outcomes/Goals: Intervention/Plan: Advocate for lipid panel cholesterol medication if applicable, Instruct on personal lipid levels & lipid goals/NCEP guidelines, Instruct on cholesterol and Other additional plan/int Diabetes (Other Core Measures) Diabetes Type: Not Applicable Weight Mgt (Other Care) Height: 5 ft 2 in Weight:: 196 lb 8 oz BMI: 35.9 Diagnosis Overweight/Obesity BMI> 30% ICD-10 E66: Yes Diagnosis High BMI/Morbid Obesity BMI> 35% ICD-10 Z68: Yes Outcomes/Goals: Pt sets, maintains & shows weight loss goal & trend during rehab and Other additional outcomes/goals Intervention/Plan: Instruct on ideal BMI & set weight loss goal w/patient, Assist pt to ID & incorporate diet changes for weight loss by S9, Refer to Structured Weight Loss program as appropriate, Encourage goal of using 250-300dcal per session for weight loss and Other additional plan/interventions Healthy Eating Habits Will attend diet classes:: Yes Outcomes/Goals:: Consume diet rich in vegs,fruits,whole grain/high fiber,fish,lean meat, Limit sat/trans fats,cholesterol & added salts & sugars and Other additional outcome/goals: 30-day Reassessments:: Progressing Reassessment Notes & Comments:: Pt is scheduled to attend nutrition class. Low sodium heart healthy diet encouraged. Education Gave educational materials for:: Signs & symptoms of hypoglycemia, Signs & symptoms of hyperglycemia, Relate diabetes to coronary artery disease and Healthy eating Nutrition - 60-Day Assessment Weight Mgt (Other Care) Height: 5 ft 2 in Weight:: 196 lb 8 oz BMI: 35.9 Core - 30-Day Assessment Visit Date of Eval: 11/18/24 Session #:: 10 Medication Compliance Preventative Medication(s):: Aspirin, Clopidogrel/P2Y12 inhibit, Statin/lipid and Beta david H/O mental health issues: depression, anxiety, or addiction?: No Doesn?t believe in the benefits of treatment?: No Believes medications are unnecessary or harmful?: No Has a concern about medication side effects?: No Expresses concern over the cost of medications?: No Outcomes/Goals: Verbalizes medications,desired effect & common side effects @ DC, Pt self-reports following medication regimen, Keeps card in wallet w/medications listed by DC and Other additional outcome/goals: Interventions/plans: Instruct on medication effects & side effects, Review medication list w/patient every two weeks, Instruct importance of taking meds as ordered & assist problem solving and Other additional Tobacco Use Tobacco Use: Non-smoker Outcomes/Goals: Smoking cessation achieved or maintained by discharge, Identify aids/strategies for achieving smoking cessation by session 6 and Other additional outcome/goals Interventions/plan: Instruct on effects of smoking & provide smoking cessation resource, Assist pt to set quit date & provide encouragement, Assist pt to develop strategies to achieve/maintain quit date, Assist pt w/nicotine replacement & medication for cessation success and Other additional plan/interventions Hypertension Resting Blood Pressure:: 110/68 [place] [employer] Hypertension Guidelines Peak Exercise Blood Pressure:: 130/78 Outcomes/Goals: Able to verbalize/achieve optimal blood pressure <130/80, Incorporates diet changes & exercise for blood pressure control by DC and Other additional outcomes/goals Interventions/plan: Instruct on optimal blood pressure, hypertension & medications, Instruct on effects of sodium, alcohol, stress, exercise &hypertension and Other additional plan/interventions 30 day Reassessments:: Progressing Reassessment Notes & Comments:: Pt reports taking her meds as prescribed. BP's are within AHA normal limits. Will continue to monitor. Tobacco Cessation Referral Smoking Cessation Referral:: No Individual Education/Counseling:: No Education Schedule Given:: Yes Psychosocial - 30-Day Assess VIsit Date of Eval: 11/18/24 Session #:: 10 Target Goals Target Goals Psychosocial Test Tool Used:: [employer] QOL Cardiac and PHQ-9 Questionnaire phq-9 Severity See PHQ-9 Score: 5 Referral to Behavioral Health PS - Interventions: Yes: Attend Stress Management Classes Outcomes/Goals: See list Psychosocial Outcomes/Goals:: ID's personal stressors & 2 strategies to manage stress by discharge and Other Additional outcome/goals: Intervention/Plan: See List Interventions/Plan:: Assess stressors,coping strategies & signs of derpression on admission, Instruct/assist pt to develop coping & personal stress Mgt strategies, Refer to Behavioral Health if appropriate, Refer to Physician if appropriate, Instruct patient to recognize signs & symptoms of depression, Instruct patient to recog and Other additional plan/intervention 30-day Reassessments: 30 day Reassessments:: Progressing Reassessment Notes & Comments:: Pt to attend stress management class. Pt denies any psychosocial issues at this time. Psychosocial - 60-Day Assess Target Goals Target Goals Referral to Behavioral Health PS - Interventions: Yes: Attend Stress Management Classes Outcomes/Goals: See list Psychosocial Outcomes/Goals:: ID's personal stressors & 2 strategies to manage stress by discharge and Other Additional outcome/goals: Psychosocial - 90-Day Assess Target Goals Target Goals Referral to Behavioral Health PS - Interventions: Yes: Attend Stress Management Classes Psychosocial - Final Assessmen Target Goals Target Goals Referral to Behavioral Health PS - Interventions: Yes: Attend Stress Management Classes Nutrition - 90-Day Assessment Weight Mgt (Other Care) Height: 5 ft 2 in Weight:: 196 lb 8 oz BMI: 35.9 Nutrition - Final Assessment Weight Mgt (Other Care) Height: 5 ft 2 in Weight:: 196 lb 8 oz BMI: 35.9
[2024-11-18 08:08] VITALS: BP 110/68
[2024-11-18 08:14] VITALS: BMI 35.9
[2024-11-18 08:21] VITALS: BP 110/68
== END 2024-12-04 23:59 ==
LOC: CR 10:15
PROVIDERS: PCP Internal Medicine; Referring Provider Internal Medicine Cardiovascular Disease; Visit Provider Internal Medicine Cardiovascular Disease
DX: Z95.1 Presence of aortocoronary bypass graft (principal); I25.5 Ischemic cardiomyopathy
CPT/HCPCS: 93798

== ENCOUNTER 2025-01-03 10:15 | Outpatient (RCR) | payer OTHER, SELFPAY ==
[2024-11-18 08:14] VITALS: BMI 35.9
[2024-12-05 00:20] VITALS: BP 110/68
--- NOTE | 2024-12-17 08:49 | PCM.CR.ITP ---
Exercise - Initial Assessment Physician Prescribed Exercise Modalities: Treadmill, SciFit Stepper and SciFit Lateral [place] Nutrition - Initial Assessment Weight Mgt (Other Care) Height: 5 ft 2 in Weight:: 193 lb BMI: 35.3 Core - Initial Assessment Hypertension Resting Blood Pressure:: 102/60 [place] [employer] Hypertension Guidelines Psychosocial - Initial Assess Target Goals Target Goals Referral to Behavioral Health PS - Interventions: Yes: Attend Stress Management Classes Patient Health Questionnaire PHQ-9 Screening 60-Day Re-eval Assessment: 1. Little interest or pleasure in doing things: Not at all 2. Feeling down, depressed, or hopeless: Several days 3. Trouble falling or staying asleep, or sleeping too much: Nearly every day 4. Feeling tired or having little energy: Several days 5. Poor appetite or overeating: Not at all 6. Feeling bad about yourself -- or that you are a failure or have let yourself or your family down: Not at all 7. Trouble concentrating on things, such as reading the newspaper or watching television: Not at all 8. Moving or speaking so slowly that other people could have noticed. Or the opposite - being so fidgety or restless that you have been moving around a lot more than usual: Not at all 9. Thoughts that you would be better off , or of hurting yourself in some way: Not at all How difficult have these problems made it for you to do your work, take care of things at home, or get along with other people?: Not difficult at all Total Score: 5 Self-Efficacy 6-Item Scale 60-Day Re-eval Assessment: We would like to know how confident you are in doing certain activities. Please select your confidence level for: Fatigue Select Number: 5 Physical Discomfort or Pain Select Number: 7 Emotional Distress Select Number: 8 Other Symptoms or Health Problems Select Number: 8 Different Tasks and Activities Select Number: 8 Medication Select Number: 8 Total Score:: 7 Nutrition Survey Nutrition Survey Instructions Scoring Instructions Exercise - 30-day Assessment Physician Prescribed Exercise Modalities: Treadmill, SciFit Stepper and SciFit Lateral [place] Exercise - 60-day Assessment Visit Date of Eval: 12/17/24 Session #:: 21 Physician Prescribed Exercise Modalities: Treadmill, SciFit Stepper and SciFit Lateral Electric Motor Mechanic Frequency: 3x/week for 12 weeks [36 sessions] Intensity: 60-80% of age predicted maximum heart rate reserve Duration: 30 - 45 minutes Current METSs:: 5.7 Target Heart Rate:: 92-116 Current RPE:: 12-13 Maximum Excercise HR:: 106 Resting Blood Pressure: 90/62 Maximum Exercise Blood Pressure: 128/80 EKG Type: NSR to ST with rare PVC Outcomes & Goals Goals:: Verbalizes understanding of THR, RPE & goal METS by session 6, Documents in home exercise log/reports 30 min aerobic 5 day/wk by DC, Demonstrates accurate pulse taking by DC and Other additional outcome/goals: see below Intervention & Plan Exercise Program Goals: Instruct on personal THR & RPE, Instruct on MET level & personal MET goal, Show patient to take own pulse /validate performance until accurate, Instruct on home exercise and Other additional plan/int Physical Activity Home Exercise Physical Activity - Home Exercise: Safe Exercise, Warm-up, Self-monitoring, Cool-Down, Home Exercise > 30 min Daily and Sitting Time <3 hours/daily Outcomes & Goals Outcomes/Goals: Demonstrates correct Warm-up/exercise Cool-Down (S3) if = 2.5 METs, Verbalizes symptoms of exercise intolerance by Session 3 (S3), Demonstrate safe equipment use (S3) & follows exercise prescrition (6) and Other: See below Intervention & Plan Plan/Intervention: Instruct warm-up & cool-down if exercising at > 2 METs, Instruct on symptoms of exercise intolerance & actions to take, Instruct & monitor on saf, Assess intial functional capacity & safety risk and Other See below 30-day Reassessments 30 day Reassessments:: Progressing Reassessment Notes & Comments:: Proper warm up and cool down explained to pt. Pt demonstrates understanding in her daily sessions. Exercise - 90-day Assessment Physician Prescribed Exercise Modalities: Treadmill, SciFit Stepper and SciFit Lateral [place] Exercise - Final/Discharge Physician Prescribed Exercise Modalities: Treadmill, SciFit Stepper and SciFit Lateral Electric Motor Mechanic Nutrition - 30-Day Assessment Weight Mgt (Other Care) Height: 5 ft 2 in Weight:: 193 lb BMI: 35.3 Nutrition - 60-Day Assessment Program Goals Nutrition Program Goals Patient has diagnosis of Hyperlipidemia (ICD E78)?: Yes Visit Date of Eval: 12/17/24 Session #:: 21 Cholesterol/Lipids (Other Core Measures) Determine presence & major risk factors that modify LDL goal: Hypertension or hypertensive medication, Low HDL cholesterol <40 mg/dL*, Family history of premature CHD in Male < 55 years: female <65 yearsFa and Age men > 45 years; women >/= 55 years Outcomes/Goals: Pt IDs own risk factors & lifestyle modifications by Session 10, Verbalizes symptoms of angina & response by session 3., Pt independently manages and Other Additional Outcomes/Goals: Intervention/Plan: Advocate for lipid panel cholesterol medication if applicable, Instruct on personal lipid levels & lipid goals/NCEP guidelines, Instruct on cholesterol and Other additional plan/int Diabetes (Other Core Measures) Diabetes Type: Not Applicable Weight Mgt (Other Care) Height: 5 ft 2 in Weight:: 193 lb BMI: 35.3 Diagnosis Overweight/Obesity BMI> 30% ICD-10 E66: Yes Diagnosis High BMI/Morbid Obesity BMI> 35% ICD-10 Z68: Yes Outcomes/Goals: Pt sets, maintains & shows weight loss goal & trend during rehab and Other additional outcomes/goals Intervention/Plan: Instruct on ideal BMI & set weight loss goal w/patient, Assist pt to ID & incorporate diet changes for weight loss by S9, Refer to Structured Weight Loss program as appropriate, Encourage goal of using 250-300dcal per session for weight loss and Other additional plan/interventions Healthy Eating Habits Will attend diet classes:: Yes Outcomes/Goals:: Consume diet rich in vegs,fruits,whole grain/high fiber,fish,lean meat, Limit sat/trans fats,cholesterol & added salts & sugars and Other additional outcome/goals: Intervention/Plan:: Assess current eating habits and Other Additional plan/interventions 30-day Reassessments:: Met Reassessment Notes & Comments:: Pt has attended nutrition classes and understands the benefits of a heart healthy low sodium diet. Education Gave educational materials for:: Signs & symptoms of hypoglycemia, Signs & symptoms of hyperglycemia, Relate diabetes to coronary artery disease and Healthy eating Core - Final Assessment Hypertension Resting Blood Pressure:: 102/60 [place] [employer] Hypertension Guidelines Core - 60-Day Assessment Visit Date of Eval: 12/17/24 Session #:: 21 Medication Compliance Preventative Medication(s):: Aspirin, Clopidogrel/P2Y12 inhibit, Statin/lipid and Beta david H/O mental health issues: depression, anxiety, or addiction?: No Doesn?t believe in the benefits of treatment?: No Believes medications are unnecessary or harmful?: No Has a concern about medication side effects?: No Expresses concern over the cost of medications?: No Outcomes/Goals: Verbalizes medications,desired effect & common side effects @ DC, Pt self-reports following medication regimen, Keeps card in wallet w/medications listed by DC and Other additional outcome/goals: Interventions/plans: Instruct on medication effects & side effects, Review medication list w/patient every two weeks, Instruct importance of taking meds as ordered & assist problem solving and Other additional Tobacco Use Tobacco Use: Non-smoker Hypertension Resting Blood Pressure:: 90/62 Resting Blood Pressure:: 102/60 [place] [employer] Hypertension Guidelines Peak Exercise Blood Pressure:: 128/80 Outcomes/Goals: Able to verbalize/achieve optimal blood pressure <130/80, Incorporates diet changes & exercise for blood pressure control by DC and Other additional outcomes/goals Interventions/plan: Instruct on optimal blood pressure, hypertension & medications, Instruct on effects of sodium, alcohol, stress, exercise &hypertension and Other additional plan/interventions 30 day Reassessments:: Met Reassessment Notes & Comments:: BP's are within AHA normal limits. Will continue to monitor. Tobacco Cessation Referral Smoking Cessation Referral:: No Individual Education/Counseling:: No Education Schedule Given:: Yes Psychosocial - 30-Day Assess Target Goals Target Goals Referral to Behavioral Health PS - Interventions: Yes: Attend Stress Management Classes Outcomes/Goals: See list Psychosocial Outcomes/Goals:: ID's personal stressors & 2 strategies to manage stress by discharge and Other Additional outcome/goals: Psychosocial - 60-Day Assess VIsit Date of Eval: 12/17/24 Session #:: 21 Target Goals Target Goals Psychosocial Test Tool Used:: PHQ-9 Questionnaire phq-9 Severity See PHQ-9 Score: 5 Referral to Behavioral Health PS - Interventions: Yes: Attend Stress Management Classes Outcomes/Goals: See list Psychosocial Outcomes/Goals:: ID's personal stressors & 2 strategies to manage stress by discharge and Other Additional outcome/goals: Intervention/Plan: See List Interventions/Plan:: Assess stressors,coping strategies & signs of derpression on admission, Instruct/assist pt to develop coping & personal stress Mgt strategies, Refer to Behavioral Health if appropriate, Refer to Physician if appropriate, Instruct patient to recognize signs & symptoms of depression, Instruct patient to recog and Other additional plan/intervention 30-day Reassessments: 30 day Reassessments:: Met Reassessment Notes & Comments:: Pt denies any psychosocial issue at this time. Pt has attended stress management class. Psychosocial - 90-Day Assess Target Goals Target Goals Referral to Behavioral Health PS - Interventions: Yes: Attend Stress Management Classes Psychosocial - Final Assessmen Target Goals Target Goals Referral to Behavioral Health PS - Interventions: Yes: Attend Stress Management Classes Nutrition - 90-Day Assessment Weight Mgt (Other Care) Height: 5 ft 2 in Weight:: 193 lb BMI: 35.3 Nutrition - Final Assessment Weight Mgt (Other Care) Height: 5 ft 2 in Weight:: 193 lb BMI: 35.3
[2024-12-17 08:59] VITALS: BP 102/60; BP 90/62; BMI 35.3
== END 2025-01-03 23:59 ==
LOC: CR 10:15
PROVIDERS: PCP Internal Medicine; Referring Provider Internal Medicine Cardiovascular Disease; Visit Provider Internal Medicine Cardiovascular Disease
DX: Z95.1 Presence of aortocoronary bypass graft (principal); I25.5 Ischemic cardiomyopathy
CPT/HCPCS: 93798

== ENCOUNTER 2025-01-24 02:00 | Outpatient (RCR) | payer OTHER, SELFPAY ==
[2024-12-17 08:59] VITALS: BMI 35.3
--- NOTE | 2025-01-14 08:30 | PCM.CR.ITP ---
Exercise - Initial Assessment Physician Prescribed Exercise Modalities: Treadmill, SciFit Stepper and SciFit Lateral [place] Nutrition - Initial Assessment Weight Mgt (Other Care) Height: 5 ft 2 in Weight:: 192 lb BMI: 35.1 Psychosocial - Initial Assess Target Goals Target Goals Referral to Behavioral Health PS - Interventions: Yes: Attend Stress Management Classes Patient Health Questionnaire PHQ-9 Screening 90-Day Re-eval Assessment: 1. Little interest or pleasure in doing things: Not at all 2. Feeling down, depressed, or hopeless: Several days 3. Trouble falling or staying asleep, or sleeping too much: Nearly every day 4. Feeling tired or having little energy: Several days 5. Poor appetite or overeating: Not at all 6. Feeling bad about yourself -- or that you are a failure or have let yourself or your family down: Not at all 7. Trouble concentrating on things, such as reading the newspaper or watching television: Not at all 8. Moving or speaking so slowly that other people could have noticed. Or the opposite - being so fidgety or restless that you have been moving around a lot more than usual: Not at all 9. Thoughts that you would be better off , or of hurting yourself in some way: Not at all How difficult have these problems made it for you to do your work, take care of things at home, or get along with other people?: Not difficult at all Total Score: 5 Self-Efficacy 6-Item Scale 90-Day Re-eval Assessment: We would like to know how confident you are in doing certain activities. Please select your confidence level for: Fatigue Select Number: 5 Physical Discomfort or Pain Select Number: 7 Emotional Distress Select Number: 8 Other Symptoms or Health Problems Select Number: 8 Different Tasks and Activities Select Number: 8 Medication Select Number: 8 Total Score:: 7 Nutrition Survey Nutrition Survey Instructions Scoring Instructions Exercise - 30-day Assessment Physician Prescribed Exercise Modalities: Treadmill, SciFit Stepper and SciFit Lateral Envelope F[place] Exercise - 60-day Assessment Physician Prescribed Exercise Modalities: Treadmill, SciFit Stepper and SciFit Lateral Envelope Folder Exercise - 90-day Assessment Visit Date of Eval: 01/14/25 Session #:: 31 Physician Prescribed Exercise Modalities: Treadmill, SciFit Stepper and SciFit Lateral Envelope Folder Frequency: 3x/week for 12 weeks [36 sessions] Intensity: 60-80% of age predicted maximum heart rate reserve Duration: 30 - 45 minutes Current METSs:: 7.9 Target Heart Rate:: 92-123 Current RPE:: 12.5-13 Maximum Excercise HR:: 112 Resting Blood Pressure: 110/64 Maximum Exercise Blood Pressure: 148/84 EKG Type: NSR to ST w rare PVC Outcomes & Goals Goals:: Verbalizes understanding of THR, RPE & goal METS by session 6, Documents in home exercise log/reports 30 min aerobic 5 day/wk by DC, Demonstrates accurate pulse taking by DC and Other additional outcome/goals: see below Intervention & Plan Exercise Program Goals: Instruct on personal THR & RPE, Instruct on MET level & personal MET goal, Show patient to take own pulse /validate performance until accurate, Instruct on home exercise and Other additional plan/int Physical Activity Home Exercise Physical Activity - Home Exercise: Safe Exercise, Warm-up, Self-monitoring, Cool-Down, Home Exercise > 30 min Daily and Sitting Time <3 hours/daily Outcomes & Goals Outcomes/Goals: Demonstrates correct Warm-up/exercise Cool-Down (S3) if = 2.5 METs, Verbalizes symptoms of exercise intolerance by Session 3 (S3), Demonstrate safe equipment use (S3) & follows exercise prescrition (6) and Other: See below Intervention & Plan Plan/Intervention: Instruct warm-up & cool-down if exercising at > 2 METs, Instruct on symptoms of exercise intolerance & actions to take, Instruct & monitor on saf, Assess intial functional capacity & safety risk and Other See below 30-day Reassessments 30 day Reassessments:: Met Reassessment Notes & Comments:: Pt has done very well. Pt is currently at 7.9 METS with 5 sessions remaining. Will continue to encourage and increase exercise intensity. Exercise - Final/Discharge Physician Prescribed Exercise Modalities: Treadmill, SciFit Stepper and SciFit Lateral Envelope F[place] Nutrition - 30-Day Assessment Weight Mgt (Other Care) Height: 5 ft 2 in Weight:: 192 lb BMI: 35.1 Nutrition - 60-Day Assessment Weight Mgt (Other Care) Height: 5 ft 2 in Weight:: 192 lb BMI: 35.1 Core - 30-Day Assessment Hypertension [place] [employer] Hypertension Guidelines Reassessment Notes & Comments:: Pt's BP's are within AHA normal limits. Will continue to monitor. Core - Final Assessment Hypertension [place] [employer] Hypertension Guidelines Reassessment Notes & Comments:: Pt's BP's are within AHA normal limits. Will continue to monitor. Core - 90 Day Assessment Visit Date of Eval: 01/14/25 Session #:: 31 Medication Compliance Preventative Medication(s):: Aspirin, Clopidogrel/P2Y12 inhibit, Statin/lipid and Beta david H/O mental health issues: depression, anxiety, or addiction?: No Doesn’t believe in the benefits of treatment?: No Believes medications are unnecessary or harmful?: No Has a concern about medication side effects?: No Expresses concern over the cost of medications?: No Interventions/plans: Instruct on medication effects & side effects, Review medication list w/patient every two weeks, Instruct importance of taking meds as ordered & assist problem solving and Other additional 30-day Reassessments:: Met Reassessment Notes & Comments:: Pt is taking meds as prescribed. Tobacco Use Tobacco Use: Non-smoker Hypertension Hypertension Diagnosis:: Hypertension ICD-10 I10 Resting Blood Pressure:: 110/64 [place] [employer] Hypertension Guidelines Peak Exercise Blood Pressure:: 148/84 Outcomes/Goals: Able to verbalize/achieve optimal blood pressure <130/80, Incorporates diet changes & exercise for blood pressure control by DC and Other additional outcomes/goals Interventions/plan: Instruct on optimal blood pressure, hypertension & medications, Instruct on effects of sodium, alcohol, stress, exercise &hypertension and Other additional plan/interventions 30 day Reassessments:: Met Reassessment Notes & Comments:: Pt's BP's are within AHA normal limits. Will continue to monitor. Tobacco Cessation Referral Smoking Cessation Referral:: No Individual Education/Counseling:: No Education Schedule Given:: Yes Psychosocial - 30-Day Assess Target Goals Target Goals Referral to Behavioral Health PS - Interventions: Yes: Attend Stress Management Classes Psychosocial - 60-Day Assess Target Goals Target Goals Referral to Behavioral Health PS - Interventions: Yes: Attend Stress Management Classes Psychosocial - 90-Day Assess VIsit Date of Eval: 01/14/25 Session #:: 31 History of previous Mental disease:: No Target Goals Target Goals Psychosocial Test Tool Used:: PHQ-9 Questionnaire phq-9 Severity See PHQ-9 Score: 5 Referral to Behavioral Health PS - Interventions: Yes: Attend Stress Management Classes Outcomes/Goals: See list Psychosocial Outcomes/Goals:: ID's personal stressors & 2 strategies to manage stress by discharge and Other Additional outcome/goals: Intervention/Plan: See List Interventions/Plan:: Assess stressors,coping strategies & signs of derpression on admission, Instruct/assist pt to develop coping & personal stress Mgt strategies, Refer to Behavioral Health if appropriate, Refer to Physician if appropriate, Instruct patient to recognize signs & symptoms of depression, Instruct patient to recog and Other additional plan/intervention 30-day Reassessments: 30 day Reassessments:: Met Reassessment Notes & Comments:: Pt has attended stress management class. Pt denies any psychosocial issues at this time. Psychosocial - Final Assessmen Target Goals Target Goals Referral to Behavioral Health PS - Interventions: Yes: Attend Stress Management Classes Nutrition - 90-Day Assessment Program Goals Nutrition Program Goals Patient has diagnosis of Hyperlipidemia (ICD E78)?: Yes Visit Date of Eval: 01/14/25 Session #:: 31 Cholesterol/Lipids (Other Core Measures) Determine presence & major risk factors that modify LDL goal: Hypertension or hypertensive medication, Low HDL cholesterol <40 mg/dL*, Family history of premature CHD in Male < 55 years: female <65 yearsFa and Age men > 45 years; women >/= 55 years Outcomes/Goals: Pt IDs own risk factors & lifestyle modifications by Session 10, Verbalizes symptoms of angina & response by session 3., Pt independently manages and Other Additional Outcomes/Goals: Intervention/Plan: Advocate for lipid panel cholesterol medication if applicable, Instruct on personal lipid levels & lipid goals/NCEP guidelines, Instruct on cholesterol and Other additional plan/int Diabetes (Other Core Measures) Diabetes Type: Not Applicable Weight Mgt (Other Care) Height: 5 ft 2 in Weight:: 192 lb BMI: 35.1 Diagnosis Overweight/Obesity BMI> 30% ICD-10 E66: Yes Diagnosis High BMI/Morbid Obesity BMI> 35% ICD-10 Z68: Yes Outcomes/Goals: Pt sets, maintains & shows weight loss goal & trend during rehab and Other additional outcomes/goals Intervention/Plan: Instruct on ideal BMI & set weight loss goal w/patient, Assist pt to ID & incorporate diet changes for weight loss by S9, Refer to Structured Weight Loss program as appropriate, Encourage goal of using 250-300dcal per session for weight loss and Other additional plan/interventions Healthy Eating Habits Will attend diet classes:: Yes Outcomes/Goals:: Consume diet rich in vegs,fruits,whole grain/high fiber,fish,lean meat, Limit sat/trans fats,cholesterol & added salts & sugars and Other additional outcome/goals: Intervention/Plan:: Assess current eating habits and Other Additional plan/interventions 30-day Reassessments:: Met Reassessment Notes & Comments:: Pt has attended nutrition class and understands the benefits of a heart healthy low sodium diet. Will continue to encourage. Education Gave educational materials for:: Signs & symptoms of hypoglycemia, Signs & symptoms of hyperglycemia, Relate diabetes to coronary artery disease and Healthy eating Nutrition - Final Assessment Weight Mgt (Other Care) Height: 5 ft 2 in Weight:: 192 lb BMI: 35.1
[2025-01-14 08:44] VITALS: BP 110/64; BMI 35.1
== END 2025-02-03 23:59 ==
LOC: CR 02:00
PROVIDERS: PCP Internal Medicine; Referring Provider Internal Medicine Cardiovascular Disease; Visit Provider Internal Medicine Cardiovascular Disease
DX: Z95.1 Presence of aortocoronary bypass graft (principal); I25.5 Ischemic cardiomyopathy
CPT/HCPCS: 93798

== ENCOUNTER → 2025-03-21 | Outpatient (CLI) | payer OTHER, SELFPAY ==
[2025-01-14 08:44] VITALS: BMI 35.1
--- NOTE | 2025-03-21 09:10 | ECHOLC_ITS ---
Reason For Study Reason For Study: CAD/ASHD Procedure This was a limited 2D transthoracic echocardiogram. Contrast injection was performed. Exam performed in department. Left Ventricle Normal LV size. Mild concentric left ventricular hypertrophy. The left ventricular ejection fraction is 50 %. There is mild global hypokinesis of the left ventricle. Right Ventricle Normal RV size. Normal systolic function. Atria Normal left atrium. Normal right atrium. Mitral Valve Normal mitral valve. Tricuspid Valve Normal tricuspid valve. Aortic Valve The aortic valve is not well visualized. Great Vessels Normal aortic root. The pulmonary artery is normal size. Inferior vena cava collapse with respiration. Pericardium/Pleural No pericardial effusion. Medication 22 gauge I.V. with prn adaptor inserted into right arm. Diluted definity 1.5ml given slow IV push to enhance endocardial definition. MMode/2D Measurements & Calculations LVIDd: 4.2 cm IVSd: 1.3 cm LVAd ap4: 32.3 cm2 LVIDs: 3.3 cm LVPWd: 1.3 cm LVLd ap4: 7.8 cm FS: 22.3 % EDV(MOD-sp4): 111.0 ml EDV(sp4-el): 114.2 ml LVAs ap4: 22.6 cm2 LVLs ap4: 7.1 cm ESV(MOD-sp4): 62.0 ml ESV(sp4-el): 61.2 ml EF(MOD-sp4): 44.1 % EF(sp4-el): 46.4 % LVAd ap2: 33.6 cm2 SV(MOD-sp4): 49.0 ml SV(MOD-sp2): 56.3 ml LVLd ap2: 8.0 cm SI(MOD-sp4): 26.2 ml/m2 SI(MOD-sp2): 30.1 ml/m2 EDV(MOD-sp2): 115.2 ml EDV(sp2-el): 119.6 ml LVAs ap2: 21.9 cm2 LVLs ap2: 6.7 cm ESV(MOD-sp2): 58.9 ml ESV(sp2-el): 60.2 ml EF(MOD-sp2): 48.9 % SV(sp4-el): 53.0 ml Doppler Measurements & Calculations PA V2 max: 119.6 cm/sec ECHO/Echo Limited w/Contrast Interpretation Summary Normal LV size. Mild concentric left ventricular hypertrophy. There is mild global hypokinesis of the left ventricle. The left ventricular ejection fraction is 50 %. Contrast injection was performed. Ordering Physician: Vinny Alejo Referring Physician: Vinny Alejo Performed By: Alvarez Lee RCS
== END | disposition home or self-care (01) ==
PROVIDERS: PCP Internal Medicine; Referring Provider Nurse Practitioner Family; Visit Provider Nurse Practitioner Family
DX: I25.10 Atherosclerotic heart disease of native coronary artery without angina pectoris (principal); Z95.1 Presence of aortocoronary bypass graft
CPT/HCPCS: 93308; Q9957; A4216; C8924